=== PATIENT | male | born 1960 | race Caucasian/White ===

== ENCOUNTER → 2023-10-24 14:08 | Outpatient (BNVA) | payer MEDICARE, MEDICAID, SELFPAY | PROVIDERS: PCP Family Medicine; Visit Provider Family Medicine | DX: Z13.6 Encounter for screening for cardiovascular disorders (principal); R35.1 Nocturia; I10 Essential (primary) hypertension | CPT/HCPCS: 80053; 80061; 84153; 84443; 85025 ==

== ENCOUNTER 2023-10-27 14:44 | Outpatient (CLI) | payer MEDICARE, MEDICAID, SELFPAY ==
--- NOTE | 2023-10-27 14:45 | USCV_ITS ---
Aniket Linder Age: 63 Gender: M : 1960 Exam Date: 10/27/2023 15:20 Ordering Phys: Allyson Dempsey DO Technologist: TREVOR [place] [facility]: PAD Risk Factors: Previous Vascular Surgery: RIGHT LEFT BP: 174.0 / 114.00 BP: 192.0/ 109.00 0 0 Waveform Velocity (cm/s) Velocity (cm/s) Waveform Triphasic 69.5 Iliac Prox 76.3 Triphasic Triphasic 76.8 Iliac Mid 82.8 Triphasic Triphasic 78.1 Iliac Distal 90.4 Triphasic Triphasic 76.1 WIND TURBINE SHEET METAL WORKER 77.5 Triphasic Triphasic 68.9 SFA Prox 76.0 Triphasic Triphasic 74.2 SFA Mid 66.6 Triphasic Triphasic SFA Dist Triphasic 77.0 50.4 Triphasic 50.5 POP 44.4 Triphasic Triphasic 44.7 DIRECTOR DISTRIBUTION 36.7 Triphasic Biphasic 19.3 DPA 52.6 Triphasic RAYNE 0.8 FINDINGS RT NONCOMPRESSIBLE SO RAYNE COULD NOT BE OBTAINED Resting RAYNE 0.8 on the left side Near normal arterial Doppler waveforms and Doppler velocities bilaterally CONCLUSIONS 1. Noncompressible ankle vessels on the right side, suggesting extensive arterial sclerosis 2. Slightly diminished resting RAYNE on the left side mainstays of mild PAD. However the normal artery Doppler waveform could suggest some technical issues problems. Recommend exercise RAYNE and TBI to better evaluate the functional Significance Dr Mode Escalera MD [facility] (Electronically Signed) Final Date: 28 October 2023 11:24 S
== END 2023-10-27 14:45 | disposition home or self-care (01) ==
LOC: RAD 14:45
PROVIDERS: PCP Family Medicine; Visit Provider Family Medicine
DX: I73.9 Peripheral vascular disease, unspecified (principal)
CPT/HCPCS: 93925

== ENCOUNTER 2023-11-08 13:39 | Outpatient (CLI) | payer MEDICARE, MEDICAID, SELFPAY ==
--- NOTE | 2023-11-08 14:15 | USCV_ITS ---
Kailash Aniket Age: 63 Gender: M : 1960 Exam Date: 11/08/2023 15:06 Ordering Phys: Allyson Dempsey DO Technologist: Exam Location: [facility] [place] Indication: leg pain RIGHT LEFT Brachial 146.00 mmHg Brachial 158.00 mmHg Pressure (mmHg) Waveform Pressure (mmHg) Waveform 180.00 DIRECTOR OF COMMUNITY SERVICES 141.00 152.00 DPA 157.00 1.03 Ankle/Brachial Index 0.99 162.00 Pre-Exercise Toe Pressure 125.00 1.00 Pre-Exercise Toe/Brachial Index 0.79 FINDINGS Resting RAYNE 1.03 on the right side and 0.9 on the left side resting TBI of 1.0 on the right side and 0.79 on the left Post exercise RAYNE were in the normal range on both sides CONCLUSIONS 1. Normal resting ABIs and TBIs bilaterally 2. Normal postexercise ABIs bilaterally No significant arterial obstruction, based on the above findings Dr Mode Escalera MD [facility] (Electronically Signed) Final Date: 09 November 2023 09:07 S
== END 2023-11-08 13:40 | disposition home or self-care (01) ==
LOC: RAD 13:39
PROVIDERS: PCP Family Medicine; Visit Provider Family Medicine
DX: I73.9 Peripheral vascular disease, unspecified (principal)
CPT/HCPCS: 93922

== ENCOUNTER 2024-01-12 12:35 | Outpatient (CLI) | payer MEDICARE, MEDICAID, SELFPAY ==
--- NOTE | 2024-01-12 13:00 | CT_ITS ---
WS: [id number] LDCT LUNG CANCER SCREENING HISTORY: screening TECHNIQUE: Axial imaging performed from the apices to 1 cm below the costophrenic angles. Coronal and sagittal reformats are submitted with axial MIP series. All CT scans at [facility] use at least one of these dose optimization techniques: automated exposure control; mA and/or kV adjustment per patient size (includes targeted exams where dose is matched to clinical indication); or iterativ e reconstruction. DLP: 97.22 mGy.cm DIvol: Mean CTDIvol: 2.10 (mGy) COMPARISON: None available. Diagnostic quality: Satisfactory Lungs: Paraseptal emphysema. 6 mm nodule in the periphery LEFT lower lobe is partially calcified. The re is an additional nodule in the superior segment RIGHT lower lobe measuring 3 mm. There are no conc erning masses or nodules. No pneumonia. Heart: Normal size heart with no pericardial effusion.. Other findings: Mild atherosclerosis aorta. Normal sized pulmonary artery. Indeterminate mediastinal and hilar lymph nodes. Lymph nodes measure up to 11 mm in short axis diameter. Some of the lymph node s contain calcification. Cholelithiasis. No evidence for acute cholecystitis. Well-circumscribed soft tissue mass in the posterior inferior RIGHT chest wall measures 1.2 x 2.1 cm. IMPRESSION: CT/CT lung screening [id number] LUNG-RADS: 1S-Negative with Significant Findings FOLLOW UP: 12 Month: Continue annual screening with LDCT OTHER FINDINGS (S MODIFIER): Cholelithiasis without acute cholecystitis. Well-circumscribed benign-appearing subcutaneous soft tissue nodule inferior po sterior RIGHT chest wall. Probably a sebaceous cyst. If this is painful or enla rges can be evaluated by ultrasound.
== END 2024-01-12 12:36 | disposition home or self-care (01) ==
LOC: RAD 12:36
PROVIDERS: PCP Family Medicine; Visit Provider Family Medicine
DX: Z12.2 Encounter for screening for malignant neoplasm of respiratory organs (principal); R91.8 Other nonspecific abnormal finding of lung field; R22.2 Localized swelling, mass and lump, trunk; F17.219 Nicotine dependence, cigarettes, with unspecified nicotine-induced disorders
CPT/HCPCS: 71271

== ENCOUNTER → 2025-08-22 11:21 | Outpatient (BNVA) | payer MEDICARE, MEDICAID, SELFPAY | PROVIDERS: PCP Family Medicine; Visit Provider Family Medicine | DX: Z12.5 Encounter for screening for malignant neoplasm of prostate (principal); I10 Essential (primary) hypertension; G62.9 Polyneuropathy, unspecified; I73.9 Peripheral vascular disease, unspecified; E78.5 Hyperlipidemia, unspecified | CPT/HCPCS: 85025 ==

== ENCOUNTER 2025-09-04 15:32 | Outpatient (CLI) | payer OTHER, MEDICAID, SELFPAY ==
--- NOTE | 2025-09-04 16:00 | USCV_ITS ---
Aniket Linder Age: 65 Gender: M : 1960 Exam Date: 09/04/2025 15:52 Ordering Phys: Allyson Dempsey DO Technologist: MADAI [place] [facility] [place]: leg pain-bilateral HISTORY: Lower extremity pain-bilateral PROCEDURES: Venous duplex imaging was performed in bilateral lower extremities. The following venous structures were evaluated: common femoral vein, profunda vein, proximal portion of the greater saphenous vein, superficial femoral vein, and the popliteal vein. In addition, the posterior tibial and peroneal trunk were evaluated. FINDINGS: Normal 2-D Doppler and augmentation and compressibility throughout the lower extremity venous structures. Additional imaging through the proximal calf veins also reveals no thrombus. Limited evaluation of the greater saphenous vein is patent with no thrombus. CONCLUSIONS No DVT bilateral lower extremities. Dr. Katharina Gunderson DO (Electronically Signed) Final Date: 05 September 2025 07:43 S
== END 2025-09-04 15:33 | disposition home or self-care (01) ==
LOC: RAD 15:35
PROVIDERS: PCP Family Medicine; Visit Provider Family Medicine
DX: M79.89 Other specified soft tissue disorders (principal); Z13.6 Encounter for screening for cardiovascular disorders; I10 Essential (primary) hypertension
CPT/HCPCS: 85025; 93970

== ENCOUNTER 2025-09-19 10:04 | Outpatient (CLI) | payer MEDICARE, MEDICAID, SELFPAY | END 2025-09-19 10:05 | disposition home or self-care (01) | PROVIDERS: PCP Family Medicine; Visit Provider Family Medicine | DX: Z12.5 Encounter for screening for malignant neoplasm of prostate (principal); R73.9 Hyperglycemia, unspecified; I10 Essential (primary) hypertension | CPT/HCPCS: 80053; 80061; G0103 ==

== ENCOUNTER 2025-09-30 15:56 | Outpatient (CLI) | payer MEDICARE, MEDICAID, SELFPAY ==
--- NOTE | 2025-09-30 16:30 | USR_ITS ---
PROCEDURE INFORMATION: Exam: US Duplex Right Lower Extremity Arteries Or Arterial Bypass Grafts Exam date and time: 09/30/2025 4:27 PM Age: 65 years old Clinical indication: Pain; Leg, lower; Right; Additional info: Pad, with pepper TECHNIQUE: Imaging protocol: Right Real-time duplex scan of the arteries or arterial bypass grafts of the right lower extremity with 2-D moya scale, color Doppler flow and spectral waveform analysis. Images documented and saved. COMPARISON: No relevant prior studies available. FINDINGS: Right common femoral artery: No occlusion or significant stenosis. Normal waveform. No pseudoaneurysm in the inguinal region. Right superficial femoral artery: No occlusion or significant stenosis. Normal waveform. Right popliteal artery: No occlusion or significant stenosis. Normal waveform. Right calf/foot arteries: No occlusion or significant stenosis in the visualized arteries. Normal waveforms. Dorsalis pedis artery is patent. Right ankle-brachial index is 1.1. Soft tissues: No hematoma or [place]. US/[place] [id number] IMPRESSION: No stenosis or occlusion. Normal ankle-brachial index.
== END 2025-09-30 15:57 | disposition home or self-care (01) ==
PROVIDERS: PCP Family Medicine; Visit Provider Family Medicine
DX: I73.9 Peripheral vascular disease, unspecified (principal); R68.89 Other general symptoms and signs
CPT/HCPCS: 93926

== ENCOUNTER 2025-10-18 13:25 | Inpatient (IN) | payer MEDICARE, MEDICAID, SELFPAY ==
[2025-10-18] VITALS (12 sets, daily range): BP systolic 120–164; BP diastolic 71–114; PULSE 92–129; RESP 12–47; TEMP 36.4–36.8; O2SAT 90–98; BMI 33.7
--- OUTSIDE RECORDS SUMMARY | 2025-10-18 13:28 | XMS_ITS | Clinical Summary ---
Author Organization [employer] Address [address] 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
--- OUTSIDE RECORDS SUMMARY | 2025-10-18 13:28 | XMS_ITS | Encounter Summary ---
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
--- OUTSIDE RECORDS SUMMARY | 2025-10-18 13:28 | XMS_ITS | Encounter Summary ---
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
--- OUTSIDE RECORDS SUMMARY | 2025-10-18 13:28 | XMS_ITS | Encounter Summary ---
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
--- OUTSIDE RECORDS SUMMARY | 2025-10-18 13:28 | XMS_ITS | Encounter Summary ---
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
--- OUTSIDE RECORDS SUMMARY | 2025-10-18 13:28 | XMS_ITS | Encounter Summary ---
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
--- OUTSIDE RECORDS SUMMARY | 2025-10-18 13:28 | XMS_ITS | Encounter Summary ---
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
--- OUTSIDE RECORDS SUMMARY | 2025-10-18 13:28 | XMS_ITS | Encounter Summary ---
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
--- NOTE | 2025-10-18 13:37 | ECG_ITS ---
[facility] Test Date: 2025-10-18 Pat Name: Aniket Linder Department: Room: Gender: Male Nurse Transitional: : 1960 Requested By: Juvenal Nair Order Number: [id number] Juan M MD: Wang Shields M.D. Measurements Intervals [place] Rate: 120 P: 8 OK: 162 QRS: -79 QRSD: 146 T: 63 QT: 378 QTc: 535 Interpretive Statements ATRIAL FLUTTER WITH VARIABLE BLOCK RIGHT BUNDLE BRANCH BLOCK [120+ ms QRS DURATION, UPRIGHT V1, 40+ ms S IN I/aVL/V4/V5/V6] LEFT ANTERIOR FASCICULAR BLOCK [QRS AXIS <= -45, QR IN I, RS IN II] POOR R WAVE PROGRESSION, POSSIBLE OLD ANTERIOR INFARCTION No previous ECG available for comparison Electronically Signed On 10-19-2025 15:54:41 NURSE TRANSITIONAL by Wang Shields M.D. [email or web address]
--- NOTE | 2025-10-18 13:38 | XRR_ITS ---
PROCEDURE INFORMATION: Exam: XR Chest Exam date and time: 10/18/2025 1:41 PM Age: 65 years old Clinical indication: Shortness of breath; Additional info: SOB TECHNIQUE: Imaging protocol: Radiologic exam of the chest. Views: 1 view. COMPARISON: CT lung screening [id number] 01/12/2024 12:44 PM FINDINGS: Lungs: Diffuse bilateral somewhat nodular interstitial infiltrates are noted.Gian B lines are noted in both lung bases. Pleural spaces: Unremarkable. No pleural effusion. No pneumothorax. Heart/Mediastinum: Mild cardiomegaly is noted. Bones/joints: Unremarkable. XR/XR chest 1V portable [id number] IMPRESSION: Congestive heart failure
--- NOTE | 2025-10-18 13:46 | ED_ITS ---
HPI - SOB/Dyspnea 2 General: Chief Complaint: Shortness of Breath/Dyspnea Stated Complaint: SOB Time Seen by Provider: 10/18/25 13:33 Source: patient Mode of arrival: ambulatory Limitations: no limitations History of Present Illness: HPI Narrative: 65-year-old male states been having shor tness of breath since last night. Longtime smoker denies any history of COPD or CHF. He has had a cough as well. Patient here is tachypneic and in distress here. He is able to speak in 2-4 word sentences. He denies any chest pain denies any fevers Related Data Previous Rx's ?Medication ?Instructions ?Recorded atorvastatin 20 mg tablet 20 mg PO DAILY #90 tabs 100 01/15 cilostazol 100 mg tablet 100 mg PO BID #180 tabs 100 01/15 losartan 50 mg tablet 50 mg PO DAILY #90 tabs 100 01/15 Allergies Allergy/AdvReac Type Severity Reaction Status Date / Time No Known Allergies Allergy Unverified 09/19/25 09:17 Review of Systems 2 Resp: Reports: dyspnea PFSH ED 2 PFSH: Medical History No pertinent past medical history Leg fracture, right Surgical History H/O knee surgery Left H/O pelvic surgery Family History Father Heart disease Mother Dementia Social History Smoking and tobacco/nicotine status: current every day tobacco/nicotine user Quit status (tobacco/nicotine): considering quitting Alcohol intake: former Substance/Drug Use: never Physical Exam 2 Const: COMMON NORMALS: patient oriented x3 GENERAL APPEARANCE: in distress and ill appearing HENMT: COMMON NORMALS: normocephalic and atraumatic HEAD & SCALP: n ormocephalic and atraumatic Neck/C-Spine: COMMON NORMALS: full ROM and supple Chest: COMMONS NORMALS: normal inspection of the chest Resp: EFFORT & INSPECTION: Yes tachypneic and Yes respiratory distress A USCULTATION: diminished lung sounds Cardio: COMMON NORMALS: regular rhythm and No murmurs present (Cardio) R ATE: tachycardic RHYTHM: regular rhythm GI: COMMON NORMALS: Normal to inspection, nondistended, normoactive bowel sounds present, Soft to palpation, non-tender and no masses PALPATION: Yes Soft to palpation Extremity: COMMON NORMALS: normal to inspection and full ROM Neuro: COMMON NORMALS: patient oriented x3, moves all extremities and no focal motor deficits Psych: COMMON NORMALS: mental status grossly normal, Normal thought process present and cooperative THOUGHT PROCESS: Normal thought process present Skin: COMMON NORMALS: no rashes or lesions noted and no wounds GENERAL SKIN EXAM: no rashes or lesions noted Course 2 Vital Signs: Vital signs: Vital Signs Temperature 97.5 F L 10/18/25 13:29 Pulse Rate 105 H 10/18/25 14:18 Respiratory Rate 16 10/18/25 14:16 Blood Pressure 120/71 10/18/25 14:16 Pulse Oximetry 97 10/18/25 14:16 Oxygen Delivery Mn thod BiPAP 10/18/25 14:16 Fraction of Inspir ed Oxygen 36 10/18/25 14:13 MDM - SOB/Dyspnea Medical Decision Making 65-year-old male presents here with shortness of breath began overnight. Differential includes pulm emboli, pneumonia, CHF, pneumothorax. Chest x-ray here was interpreted by me shows extensive pulmonary edema is no signs of pneumothorax no signs of pneumonia. EKG here showed sinus tach heart rate [address] elevation QRS 146 QTc 449. Patient was quite hypertensive. Likely had a flash pulmonary edema. Given labetalol blood pressure here has improved put him on BiPAP as well as he was on respiratory distress and his breathing here has improved. Initial troponin here is elevated he has no active chest pain no ST elevation on his EKG troponin elevation could be from his congestive heart failure also could be an NSTEMI we will give him a dose of Lovenox. I spoke to hospitalist Dr. Escobedo and will admit to the cardiac stepdown. I also consulted card fixer Dr. Payan I did go over all these findings with patient and family and they agree with admission critical care time 45 minutes The high probability of a clinically significant, sudden or life threatening deterioration of the patient's cv system(s) required my full and direct attention, intervention and personal management. The critical care time is as shown. This time is in addition to time spent performing any reported procedures but includes the following: [x] Data and vital sign review and interpretation [x] Patient assessment, examination and intervention [x] Documentation [x] Medication orders and management Medical Records I reviewed the patient's medical records. Lab Data I reviewed the patient's lab results. 10/18/25 13:44 10/18/25 13:44 Labs/Radiology: Radiology Impressions Chest X-Ray 10/18/25 13:38 IMPRESSION: Congestive heart failure Laboratory Results WBC 14.79 10^3/uL (3.29-11.43) H 10/18/25 13:44 RBC 5.22 10^6/uL (3.85-5.65) 10/18/25 13:44 Hgb 14.90 g/dL (11.27-16.99) 10/18/25 13:44 Hct 45.2 % (37-53) 10/18/25 13:44 MCV 86.6 fl (82-101) 10/18/25 13:44 MCH 28.5 pg (27-33) 10/18/25 13:44 MCHC 33.0 g/dL (30-55) 10/18/25 13:44 RDW 14.0 % (12.1-15.1) 10/18/25 13:44 Plt Count 313 10^3/cmm (157-399) 10/18/25 13:44 MPV 10.8 fL (7.4-10.4) H 10/18/25 13:44 Neut % (Auto) 78.5 % 10/18/25 13:44 Lymph % (Auto) 14.8 % 10/18/25 13:44 Morrill % (Auto) 5.1 % 10/18/25 13:44 Eos % (Auto) 0.5 % 10/18/25 13:44 Baso % (Auto) 0.5 % 10/18/25 13:44 Neut # (Auto) 11.61 10^3/uL (1.8-7.7) H 10/18/25 13:44 Lymph # (Auto) 2.2 10^3/uL (0.8-4.8) 10/18/25 13:44 Morrill # (Auto) 0.8 10^3/uL (0.2-0.9) 10/18/25 13:44 Eos # (Auto) 0.1 10^3/uL (0.0-0.8) 10/18/25 13:44 Baso # (Auto) 0.1 10^3/uL (0.0-0.1) 10/18/25 13:44 Nucleated RBC % (auto) 0 % 10/18/25 13:44 Nucleated RBCs # 0.0 /100WBC 10/18/25 13:44 Specimen Type Arterial 10/18/25 14:39 Sample Site Brachial, right 10/18/25 14:39 ABG pH 7.50 (7.35-7.45) H 10/18/25 14:39 ABG pCO2 25.1 mmHg (35-45) L 10/18/25 14:39 ABG pO2 82.4 mmHg (80.0-100.0) 10/18/25 14:39 ABG PO2/FiO2 Ratio 228 10/18/25 14:39 ABG HCO3 19.4 mmol/L (22-26) L 10/18/25 14:39 ABG Base Excess -2.0 mmol/L (-2.0-2.0) 10/18/25 14:39 Jonatan Test Pos 10/18/25 14:39 Hematocrit 46.0 % (42-52) 10/18/25 14:39 Hgb O2 Saturation 96.6 % (95-100) 10/18/25 14:39 Carboxyhemoglobin 1.3 %THgb (0.4-20.1) 10/18/25 14:39 Methemoglobin 0.1 % (0.4-1.5) L 10/18/25 14:39 Total Hemoglobin 15.0 g/dL (14-18) 10/18/25 14:39 O2 Delivery Device Bipap 10/18/25 14:39 FiO2 36.0 % 10/18/25 14:39 [employer] Gold Attendant ID glc 10/18/25 14:39 Sodium 135 mmol/L (136-145) L 10/18/25 13:44 Potassium 4.4 mmol/L (3.5-5.1) 10/18/25 13:44 Chloride 101 mmol/L (98-107) 10/18/25 13:44 Carbon Dioxide 21 mmol/L (22-29) L 10/18/25 13:44 Anion Gap 17.4 (5-19) 10/18/25 13:44 BUN 13 mg/dL (8-23) 10/18/25 13:44 Creatinine 0.9 mg/dL (0.7-1.2) 10/18/25 13:44 GFR Calculation 84.7 mL/min (90-130) L 10/18/25 13:44 Glucose 145 mg/dL (65-115) H 10/18/25 13:44 Calculated Osmolality 283 mOsm/kg (285-295) L 10/18/25 13:44 Calcium 9.2 mg/dL (8.5-10.5) 10/18/25 13:44 Total Bilirubin 0.9 mg/dL (0.15-1.2) 10/18/25 13:44 AST 19 U/L (0-40) 10/18/25 13:44 ALT 16 U/L (0-41) 10/18/25 13:44 Alkaline Phosphatase 139 U/L (40-130) H 10/18/25 13:44 Troponin T Baseline 116 ng/L (0-15) H* 10/18/25 13:44 NT-Pro-B Natriuret Pep 3063 pg/mL (0-125) H 10/18/25 13:44 Total Protein 7.2 g/dL (6.6-8.7) 10/18/25 13:44 Albumin 4.1 g/dL (3.5-5.2) 10/18/25 13:44 Globulin 3.1 g/dL (1.3-4.6) 10/18/25 13:44 Influenza A (PCR) Negative (Negative) 10/18/25 13:44 Influenza Type B (PCR) Negative (Negative) 10/18/25 13:44 RSV (PCR) Negative (Negative) 10/18/25 13:44 SARS-CoV-2 (PCR) Negative (Negative) 10/18/25 13:44 All radiology interpretation(s) finalized by discharge EKG Data EKG 1: I personally reviewed and interpreted this EKG as follows: EKG Interpretation Date: 10/18/25 EKG interpretation time: 13:36 Interpretation: sinus tach hr [address] elevation qrs 146 qtc 449 Critical Care Time 2 Critical Care Time: Critical Care Time: Yes Total Critical Care Time: 45 Attestation: The high probability of a clinically significant, sudden or life threatening deterioration of the patient's cv system(s) required my full and direct attention, intervention and personal management. The critical care time is as shown. This time is in addition to time spent performing any reported procedures but includes the following: [x] Data and vital sign review and interpretation [x] Patient assessment, examination and intervention [x] Documentation [x] Medication orders and management Discharge Plan Discharge Patient Disposition: Admitted As Inpatient Clinical Impression: Pulmonary edema, Non-ST elevation [place] (NSTEMI), Acute respiratory failure with hypoxia Condition: Stable Coding Level of Care Code ED Pattern Gater for Shannan Santos
[2025-10-18] MEDS: methylPREDNISolone sod succ 125 mg/2 mL INJ IV (13:47)
[2025-10-18 13:50] LABS: Hematocrit 45.2 % (37-53); Hemoglobin 14.90 g/dL (11.27-16.99); Mean Corpuscular HGB Conc 33.0 g/dL (30-55); Mean Corpuscular Hemoglobin 28.5 pg (27-33); Mean Corpuscular Volume 86.6 fl (82-101); Nucleated Red Blood Cells % 0 %; Platelet Count 313 10^3/cmm (157-399); Red Blood Count 5.22 10^6/uL (3.85-5.65); White Blood Count 14.79 10^3/uL (3.29-11.43)
[2025-10-18] MEDS: FUROsemide 10 mg/mL SDV 4mL 40 MG IVP ×2 (14:03→20:46)
[2025-10-18] MEDS: labetalol 5 mg/mL SDV 20mL 10 MG IVP (14:03)
[2025-10-18 14:21] LABS: Alanine Aminotransferase 16 U/L (0-41); Albumin Level 4.1 g/dL (3.5-5.2); Alkaline Phosphatase 139 U/L (40-130); Anion Gap 17.4 (5-19); Aspartate Amino Transferase 19 U/L (0-40); Blood Urea Nitrogen 13 mg/dL (8-23); Calcium 9.2 mg/dL (8.5-10.5); Carbon Dioxide 21 mmol/L (22-29); Chloride 101 mmol/L (98-107); Creatinine Clr Calc Pharmacy 100.0435; Globulin 3.1 g/dL (1.3-4.6); Glucose 145 mg/dL (65-115); NT Pro B Type Natriuretic Pept 3063 pg/mL (0-125); Osmolality Calculated 283 mOsm/kg (285-295); Potassium 4.4 mmol/L (3.5-5.1); Sodium 135 mmol/L (136-145); Total Protein 7.2 g/dL (6.6-8.7)
[2025-10-18 14:22] LABS: Troponin(5th) Baseline 116 ng/L (0-15)
[2025-10-18 14:29] LABS: Respiratory Syncytial Virus Ce NEGATIVE (Negative); SARS-CoV-2 PCR NEGATIVE (Negative)
[2025-10-18 14:51] LABS: ABG PCO2 25.1 mmHg (35-45); ABG PH Result 7.50 (7.35-7.45); Arterial Blood Gas Hematocrit 46.0 % (42-52); Blood Gas Allen Test Pos; Blood Gas Operator Identificat glc; Blood Gas Sample Site Brachial, right; Blood Gas Sample Type Arterial; Carboxyhemoglobin 1.3 %THgb (0.4-20.1); HCO3 ABG 19.4 mmol/L (22-26); Methemoglobin 0.1 % (0.4-1.5); PO2 ABG 82.4 mmHg (80.0-100.0); PO2 FiO2 Ratio Arterial Blood 228
--- NOTE | 2025-10-18 15:37 | ECG_ITS ---
[facility] Date: 2025-10-18 Pat Name: Aniket Linder Department: Room: 108 Gender: Male Employment Counselor: : 1960 Requested By: Juvenal Nair Order Number: [id number] Juan M MD: Wang Shields M.D. Measurements Intervals [place] Rate: 99 P: -8 ID: [id number] QRS: -85 QRSD: 147 T: 120 QT: 290 QTc: 372 Interpretive Statements SINUS RHYTHM WITH FIRST DEGREE AV BLOCK WITH OCCASIONAL SUPRAVENTRICULAR PREMATURE COMPLEXES LEFT AXIS DEVIATION [QRS AXIS < -30] RIGHT BUNDLE BRANCH BLOCK [120+ ms QRS DURATION, UPRIGHT V1, 40+ ms S IN I/aVL/V4/V5/V6] Compared to ECG 10/18/2025 13:36:31 NO SIGNIFICANT CHANGE Electronically Signed On 10-19-2025 17:37:33 DOG RAISER by Wang Shields M.D. [id number]
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
--- NOTE | 2025-10-18 16:00 | PC.NURSE ---
Admit Note Patient admitted to 108 from ER via stretcher. Covering service notified Dr Neri. Patient presents with SOB and generalizes swelling on legs. Orders reviewed & will continue to monitor. Pt still tachypneic upon arrival, BIPAP placed. Lower extremity cool to touch, with mild mottling. Pt on 4 L NC. Applied BIPAP back on for work of breathing, notified RT to come to room. Patient and/or tax compliance representative - oriented to environment, equipment, and informed of the following as found in the admission booklet: patient rights & responsibilities, visitor policy, hand and respiratory hygiene practice. Other education includes: BIPAP use, oxygen monitoring and use and placement of romero catheter for output measurement while on diureses. Patient and/or tax compliance representative verbalizes understanding.
--- NOTE | 2025-10-18 16:03 | USR_ITS ---
PROCEDURE INFORMATION: Exam: US Duplex Bilateral Lower Extremity Arteries Exam date and time: 10/18/2025 5:13 PM Age: 65 years old Clinical indication: Other: Decreased dp/pt pulses TECHNIQUE: Imaging protocol: Real-time ultrasound scan of the arteries of the bilateral lower extremities with 2-D moya scale, color Doppler flow and spectral waveform analysis. Images documented and saved. COMPARISON: [place] [id number] 09/30/2025 4:27 PM FINDINGS: Right common femoral artery: No occlusion or significant stenosis. Normal waveform. Right superficial femoral artery: No occlusion or significant stenosis. Normal waveform. Right popliteal artery: No occlusion or significant stenosis. Normal waveform. Right calf/foot arteries: No occlusion or significant stenosis in the visualized arteries. Normal waveforms. Dorsalis pedis artery is patent. Left common femoral artery: No occlusion or significant stenosis. Normal waveform. Left superficial femoral artery: No occlusion or significant stenosis. Normal waveform. Left popliteal artery: No occlusion or significant stenosis. Normal waveform. Left calf/foot arteries: No occlusion or significant stenosis in the visualized arteries. Normal waveforms. Dorsalis pedis artery [place]. US/[place] [id number] IMPRESSION: 1. No stenosis or occlusion. 2. Per technologist unable to calculate RAYNE due to noncompressible ankle arteries.
[2025-10-18 16:34] LABS: Estmated Average Glucose 148; Hemoglobin A1C 6.8 % (4.0-6.0)
[2025-10-18 16:43] LABS: Procalcitonin 0.07 ng/mL (0-0.5); Thyroid Stimulating Hormone 2.01 uIU/mL (0.27-4.20)
[2025-10-18 16:54] LABS: Cholesterol 118 mg/dL (0-200); HDL Cholesterol 36 mg/dL (60-100); Triglycerides 82 mg/dL (0-150)
[2025-10-18 17:02] LABS: Glucose Urine UA Negative (Normal); Nitrate Urine Negative (Negative); Specific Gravity, Urine 1.008 (1.005-1.030)
[2025-10-18] MEDS: cefTRIAXone 1,000 mg SDV 1000 MG IVP (17:03)
[2025-10-18] MEDS: pantoprazole 40 mg SDV IVP (17:03)
[2025-10-18 17:07] LABS: Add Urine Microscopic? YES
[2025-10-18 17:37] LABS: Lactic Sepsis W/Reflex 1.7 mmol/L (0.5-2.2)
[2025-10-18 17:48] LABS: INR 1.02 (0.8-1.2); Prothrombin Time 14.10 SECONDS (12.1-14.9)
[2025-10-18 17:49] LABS: Partial Thromboplastin Time 30.8 SECONDS (23.9-36.7)
--- NOTE | 2025-10-18 17:55 | P.CONIM_ITS ---
Providers/Reason For Consult 2 Consulting Physician/Specialty*: Wang Shields MD Reason for Consult*: Congestive heart failure Requesting Physician: William Neri MD Attending Physician: William Neri MD Primary Care Provider: Allyson Dempsey DO History of Present Illness History of Present Illness Aniket Linder is a 65 year old male with a history of COPD, hypertension and chronic lower extremity lymphedema who presents with shortness of breath and hypertensive emergency. Blood pressure was in the 180s over 120 in the emergency room. He was hypoxic and started on BiPAP with some improvement. Patient was given Lasix 40 mg IV x 1. Chest x-ray showed bilateral infiltrates and pulmonary edema. Patient was found to have lower extremity edema on exam. Patient and the patient's state his swelling is no worse compared to his baseline. 2 EKGs have been performed which I have personally interpreted: Sinus tachycardia heart rate 120, left anterior fascicular block, right bundle branch block Troponins: 116??> 120 NT proBNP 3063 No prior echocardiograms in our records 11/08/2023 arterial duplex at rest and postexercise: 1. Normal resting ABIs and TBIs bilaterally 2. Normal postexercise ABIs bilaterally Medications/Allergies Home Medications ?Medication ?Instructions ?Recorded ?Confirmed ?Last Taken ?Type atorvastatin 20 mg tablet 20 mg PO DAILY #90 tabs 10/0 01/1510/18/25 10/17/25 19:00 Rx cilostazol 100 mg tablet 100 mg PO BID #180 tabs 10/0 01/1510/18/25 10/17/25 19:00 Rx losartan 50 mg tablet 50 mg PO DAILY #90 tabs 10/0 01/1510/18/25 10/17/25 19:00 Rx Allergies Allergy/AdvReac Type Severity Reaction Status Date / Time No Known Allergies Allergy Unverified 09/19/25 09:17 Current Medications Generic Name Dose Route Start Last Admin Trade Name Freq PRN Reason Stop Dose Admin Albuterol/Ipratropium 3 ml 10/18/25 16:03 10/18/25 16:46 Ipratropium-Albuterol 3 Ml Neb INHALATION 3 ml Q4H.RESPIRATORY JAIDEN Administration Ceftriaxone Sodium 1,000 mg 10/18/25 16:03 10/18/25 17:03 Ceftriaxone 1,000 Mg Sdv IVP 1,000 mg Q24H JAIDEN Administration Protocol Azithromycin 500 mg/ Sodium 250 mls @ 250 mls/hr 10/18/25 16:03 10/18/25 17:03 Chloride IV 250 mls/hr Q24H JAIDEN Administration Protocol Pantoprazole Sodium 40 mg 10/18/25 16:03 10/18/25 17:03 Pantoprazole 40 Mg Sdv IVP 40 mg Q24H JAIDEN Administration PFSH Acute 2 PFSH: Medical History (Updated 10/18/25 @ 18:02 by Wang Shields MD) No pertinent past medical history Leg fracture, right Surgical History H/O knee surgery Left H/O pelvic surgery Family History Father Heart disease Mother Dementia Social History Smoking and tobacco/nicotine status: current every day tobacco/nicotine user Quit status (tobacco/nicotine): considering quitting Alcohol intake: former Substance/Drug Use: never Vitals/I&O/Wt Last Vital Signs Temp 97.8 F 10/18/25 16:03 Pulse 104 H 10/18/25 16:50 Resp 30 H 10/18/25 16:50 BP 130/89 10/18/25 16:03 Pulse Ox 94 10/18/25 16:50 O2 Del Method BiPAP 10/18/25 16:50 FiO2 36 10/18/25 16:50 10/18/25 10/18/25 10/18/25 06:59 14:59 22:59 Output Total 1050 / 1050 Balance -1050 / -1050 Weight last 48 hrs Weight 235 lb Physical Exam 2 Narrative: General: Mild increased work of breathing. Heart: Normal S1 and S2 with a regular rate and rhythm Lungs: Posterior rales bilaterally Extremities: 1+ bilateral lower extremity edema Neuro: Alert and oriented x 3 Data 10/18/25 13:44 10/18/25 13:44 Micro: Microbiology 10/18/25 17:02 Blood Culture - Preliminary Blood SPECIMEN COLLECTED 10/18/25 17:00 Blood Culture - Preliminary Blood SPECIMEN COLLECTED A&P Assessment and plan 1. Acute respiratory failure with hypoxia: 2. Non-ST elevation [place] (NSTEMI): 3. Pulmonary edema: 4. Dyslipidemia: 5. Acute CHF: Plan: - Patient presents with accelerated hypertension, acute hypoxic respiratory failure and congestive heart failure. Chest x-ray consistent with pulmonary edema and possible bilateral pneumonia. Troponins mildly elevated possibly due to just demand ischemia however acute coronary syndrome cannot be excluded. EKG with no evidence of ST or T wave ischemic changes. Patient also denies having any chest pain. His main symptom has been shortness of breath. - Obtain echocardiogram - Lasix 40 mg IV twice daily ? Lovenox 1 mg/kg SQ twice daily ? Aspirin 81 mg daily - Accelerated hypertension has normalized with improvement in the patient's respiratory distress - Treatment for possible known pneumonia per hospitalist team - Will need ischemic workup once respiratory status more stable. Stress test versus heart catheterization will depend on the echocardiogram results and his clinical progress. PDMP PDMP Reviewed: Not Reviewed Coding Level of Care Code 34721 Diagnoses Acute respiratory failure with hypoxia J96.01 Non-ST elevation [place] (NSTEMI) I21.4 Pulmonary edema J81.1 Dyslipidemia E78.5 Acute CHF I50.9
[2025-10-18 20:45] LABS: Troponin 5 6HR Delta -1.3 ng/L (0-12)
[2025-10-18 21:05] LABS: Troponin 5 6HR 114.7 ng/L (0-15)
--- NOTE | 2025-10-18 22:34 | ECG_ITS ---
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 Measurements Intervals [place] Rate: 102 P: -8 WI: 163 QRS: -77 QRSD: 150 T: 120 QT: 351 QTc: 459 Interpretive Statements SINUS TACHYCARDIA WITH OCCASIONAL SUPRAVENTRICULAR PREMATURE COMPLEXES RIGHT BUNDLE BRANCH BLOCK [120+ ms QRS DURATION, UPRIGHT V1, 40+ ms S IN I/aVL/V4/V5/V6] LEFT ANTERIOR FASCICULAR BLOCK [QRS AXIS <= -45, QR IN I, RS IN II] Compared to ECG 10/18/2025 14:40:00 NO SIGNIFICANT CHANGE TRACING ARTIFACT DECREASED Electronically Signed On 10-19-2025 17:27:22 ALIGNING INSPECTOR by Wang Shields M.D. [id number]
[2025-10-19] VITALS (16 sets, daily range): BP systolic 108–151; BP diastolic 56–112; PULSE 90–133; RESP 13–28; TEMP 36.4–36.8; O2SAT 93–98
[2025-10-19 03:30] LABS: Hematocrit 43.8 % (37-53); Hemoglobin 13.90 g/dL (11.27-16.99); Mean Corpuscular HGB Conc 31.7 g/dL (30-55); Mean Corpuscular Hemoglobin 28.3 pg (27-33); Mean Corpuscular Volume 89.2 fl (82-101); Nucleated Red Blood Cells % 0 %; Platelet Count 231 10^3/cmm (157-399); Red Blood Count 4.91 10^6/uL (3.85-5.65); White Blood Count 13.54 10^3/uL (3.29-11.43)
[2025-10-19 04:04] LABS: Alanine Aminotransferase 13 U/L (0-41); Albumin Level 3.7 g/dL (3.5-5.2); Alkaline Phosphatase 122 U/L (40-130); Blood Urea Nitrogen 16 mg/dL (8-23); Calcium 8.7 mg/dL (8.5-10.5); Carbon Dioxide 20 mmol/L (22-29); Chloride 101 mmol/L (98-107); Globulin 2.6 g/dL (1.3-4.6); Glucose 277 mg/dL (65-115); Magnesium 2.2 mg/dL (1.7-2.3); NT Pro B Type Natriuretic Pept 6066 pg/mL (0-125); Osmolality Calculated 289 mOsm/kg (285-295); Sodium 134 mmol/L (136-145); Total Protein 6.3 g/dL (6.6-8.7)
[2025-10-19 04:05] LABS: Anion Gap 17.4 (5-19); Aspartate Amino Transferase 17 U/L (0-40); Potassium 4.4 mmol/L (3.5-5.1)
[2025-10-19] MEDS: methylPREDNISolone sod succ 40 mg/mL INJ IVP ×2 (04:11→12:33)
[2025-10-19] MEDS: ATORVASTATIN 20 MG TABLET PO (04:12)
[2025-10-19] MEDS: FUROsemide 10 mg/mL SDV 4mL 40 MG IVP ×2 (08:00→21:22)
--- NOTE | 2025-10-19 08:29 | ECG_ITS ---
[employer] [facility] [facility] Test Date: 2025-10-19 Pat Name: Aniket Linder Department: Room: 108 Gender: Male Stripper Preliminary: : 1960 Requested By: William Neri Order Number: [id number] Juan M MD: Wang Shields M.D. Measurements Intervals [place] Rate: 131 P: 0 PA: 0 QRS: -78 QRSD: 149 T: 81 QT: 369 QTc: 545 Interpretive Statements SINUS TACHYCARDIA WTIH FREQUENT PREMATURE ATRIAL BEATS RIGHT BUNDLE BRANCH BLOCK [120+ ms QRS DURATION, UPRIGHT V1, 40+ ms S IN I/aVL/V4/V5/V6] LEFT ANTERIOR FASCICULAR BLOCK [QRS AXIS <= -45, QR IN I, RS IN II] POSSIBLE SEPTAL MYOCARDIAL INFARCTION , OF INDETERMINATE AGE [30 ms Q WAVE IN V1/V2] Compared to ECG 10/18/2025 22:34:36 HEART RATE AND FREQUENCY OF PREMATURE ATRIAL ECTOPIC BEATS HAS INCREASED Electronically Signed On 10-19-2025 14:28:37 MULTIMEDIA EDUCATIONAL SPECIALIST by Wang Shields M.D. [email or web address] [id number]
[2025-10-19 10:02] LABS: Troponin(5th) Baseline 92 ng/L (0-15)
--- NOTE | 2025-10-19 10:27 | ECG_ITS ---
[facility] Test Date: 2025-10-19 Pat Name: Aniket Linder Department: Room: 108 Gender: Male Or Assistant: : 1960 Requested By: William Neri Order Number: [id number] Juan M MD: Wang Shields M.D. Measurements Intervals [place] Rate: 121 P: 0 [place]: 0 QRS: -82 QRSD: 154 T: 56 QT: 393 QTc: 558 Interpretive Statements SINUS TACHYCARDIA WITH FREQUENT SUPRAVENTRICULAR ECTOPIC BEATS LEFT AXIS DEVIATION [QRS AXIS < -30] RIGHT BUNDLE BRANCH BLOCK [120+ ms QRS DURATION, UPRIGHT V1, 40+ ms S IN I/aVL/V4/V5/V6] LEFT ANTERIOR FASCICULAR BLOCK Compared to ECG 10/19/2025 08:29:51 NO SIGNIFICANT CHANGE Electronically Signed On 10-19-2025 17:17:00 MEAT TRIMMER by Wang Shields M.D. [id number]
--- NOTE | 2025-10-19 13:11 | P.PN_ITS ---
Subjective 2 Subjective: Overnight, no chest pain, does have palpitations, currently in A-fib with RVR heart rates up into the 130s, no lightheadedness, dizziness no history of atrial fibrillation Vitals/I&O/Wt Last Vital Signs Temp 98.1 F 10/19/25 11:47 Pulse 111 H 10/19/25 11:47 Resp 28 H 10/19/25 11:47 BP 108/59 10/19/25 11:47 Pulse Ox 93 10/19/25 11:47 O2 Del Method Nasal Cannula 10/19/25 11:16 O2 Flow Rate 4 10/19/25 11:16 FiO2 36 10/18/25 20:00 10/18/25 10/19/25 10/19/25 22:59 06:59 14:59 Intake Total 250 / 250 240 / 490 480 / 480 Output Total 1450 / 1450 1150 / 2600 Balance -1200 / -1200 -910 / -2110 480 / 480 Weight last 48 hrs Weight 112.8 kg Weight 115 kg Weight 106.594 kg Physical Exam 2 Const: COMMON NORMALS: no acute distress and patient oriented x3 Resp: COMMON NORMALS: normal respiratory effort, No retractions, No use of accessory muscles and clear to auscultation bilaterally AUSCULTATION: clear to auscultation bilaterally Cardio: COMMON NORMALS: S1 normal heart sound present and S2 normal heart sound present RATE: tachycardic RHYTHM: abnormal rhythm irregularly irregular HEART SOUNDS: S1 normal heart sound present and S2 normal heart sound present GI: COMMON NORMALS: Normal to inspection, nondistended, normoactive bowel sounds present and non-tender Extremity: COMMON NORMALS: no pedal edema Neuro: COMMON NORMALS: patient oriented x3 and CN's II-XII intact bilaterally Psych: COMMON NORMALS: mental status grossly normal Urinary Catheter Management: Hanley Latex Free: Cath Placed During This Visit: yes Reason for Continuing Indwelling Catheter: Accurate Measurement of Urinary Output in Critically Ill Patients Urinary Catheter Date of Insertion: 10/18/25 Urinary Catheter Time of Insertion: 16:10 Data 10/19/25 03:01 10/19/25 03:01 Micro: Microbiology 10/18/25 17:02 Blood Culture - Preliminary Blood SPECIMEN COLLECTED 10/18/25 17:00 Blood Culture - Preliminary Blood SPECIMEN COLLECTED A&P Assessment and plan 1. Acute respiratory failure with hypoxia: 2. Systolic CHF, acute: 3. Pneumonia: 4. Sepsis: 5. PAD (peripheral artery disease): 6. Non-ST elevation [place] (NSTEMI): 7. Atrial fibrillation with RVR: Plan: Acute hypoxic respiratory failure - Multifactorial - Systolic CHF exacerbation - Underlying COPD exacerbation - Pneumonia - With sepsis -With NSTEMI Plan - Admit to cardiac stepdown unit - Monitor respiratory status closely - BiPAP therapy - Lasix 40 IV twice daily - Monitor urine output, monitor creatinine - Cardiac echo - Serial EKGs, serial troponins, telemetry monitoring - Aspirin, statin- -cardiology consulted - Rocephin - Azithromycin - Blood cultures - Sputum cultures - Solu-Medrol 40 mg IV every 8 hours, de-escalate to prednisone 40 mg daily - DuoNeb- -budesonide - Full code - Lovenox for DVT prophylaxis AFibrillation with rapid ventricular response - Amiodarone drip - Therapeutic Lovenox NSTEMI - Complaints of chest pain associated with shortness of breath - Workup as above Peripheral arterial disease -Does have slightly diminished pulses DP PT bilaterally, slightly cool, good capillary fill, no pain, - Therapeutic Lovenox - Aspirin, statin - Doppler extremity pulses, - Arterial ultrasound, no acute findings PDMP PDMP Reviewed: Not Reviewed Attestations 2 Medical Necessity Statement*: patient requires hospitalization for acute hypoxic respiratory failure, systolic CHF, COPD, pneumonia, sepsis, atrial fibrillation rate response Diagnoses Acute respiratory failure with hypoxia J96.01 Systolic CHF, acute I50.21 Pneumonia J18.9 Sepsis A41.9 PAD (peripheral artery disease) I73.9 Non-ST elevation [place] (NSTEMI) I21.4 Atrial fibrillation with RVR I48.91
--- NOTE | 2025-10-19 13:16 | P.PN_ITS ---
Subjective 2 Subjective: Breathing much better but still requiring nasal cannula Vitals/I&O/Wt Last Vital Signs Temp 98.1 F 10/19/25 11:47 Pulse 111 H 10/19/25 11:47 Resp 28 H 10/19/25 11:47 BP 108/59 10/19/25 11:47 Pulse Ox 93 10/19/25 11:47 O2 Del Method Nasal Cannula 10/19/25 11:16 O2 Flow Rate 4 10/19/25 11:16 FiO2 36 10/18/25 20:00 10/18/25 10/19/25 10/19/25 22:59 06:59 14:59 Intake Total 250 / 250 240 / 490 480 / 480 Output Total 1450 / 1450 1150 / 2600 Balance -1200 / -1200 -910 / -2110 480 / 480 Weight last 48 hrs Weight 248 lb 10.903 oz Weight 253 lb 8.505 oz Weight 235 lb Physical Exam 2 Narrative: General: breathing less labored today Heart: Normal S1 and S2 with a regular rate and rhythm Lungs: cta Extremities: 1+ bilateral lower extremity edema (chronic) Neuro: Alert and oriented x 3 Urinary Catheter Management: Hanley Latex Free: Cath Placed During This Visit: yes Reason for Continuing Indwelling Catheter: Accurate Measurement of Urinary Output in Critically Ill Patients Urinary Catheter Date of Insertion: 10/18/25 Urinary Catheter Time of Insertion: 16:10 Data 10/19/25 03:01 10/19/25 03:01 Micro: Microbiology 10/18/25 17:02 Blood Culture - Preliminary Blood SPECIMEN COLLECTED 10/18/25 17:00 Blood Culture - Preliminary Blood SPECIMEN COLLECTED A&P Assessment and plan 1. Acute respiratory failure with hypoxia: 2. Non-ST elevation [place] (NSTEMI): 3. Pulmonary edema: 4. Dyslipidemia: 5. Acute CHF: Plan: - diuresing well with improvement in SOB - Lasix 40 mg IV twice daily ? Lovenox 1 mg/kg SQ twice daily ? Aspirin 81 mg daily - will review and report echo today - cath versus nuclear stress test depending on echo result PDMP PDMP Reviewed: Not Reviewed Attestations 2 Medical Necessity Statement*: Patient needs another 2 midnights in the hospital due to acute congestive heart failure exacerbation Coding Level of Care Code 15469 Diagnoses Acute respiratory failure with hypoxia J96.01 Non-ST elevation [place] (NSTEMI) I21.4 Pulmonary edema J81.1 Dyslipidemia E78.5 Acute CHF I50.9
--- NOTE | 2025-10-19 14:08 | ECG_ITS ---
[facility] Test Date: 2025-10-19 Pat Name: Aniket Linder Department: Room: 108 Gender: Male Entry Level Marketing Assistant: : 1960 Requested By: William Neri Order Number: [id number] Juan M MD: Wang Shields M.D. Measurements Intervals [place] Rate: 116 P: 0 DE: 0 QRS: -67 QRSD: 151 T: 59 QT: 387 QTc: 539 Interpretive Statements SINUS TACHYCARDIA SUPRAVENTRICULAR ECTOPIC BEATS RIGHT BUNDLE BRANCH BLOCK [120+ ms QRS DURATION, UPRIGHT V1, 40+ ms S IN I/aVL/V4/V5/V6] LEFT ANTERIOR FASCICULAR BLOCK [QRS AXIS <= -45, QR IN I, RS IN II] Compared to ECG 10/19/2025 10:00:56 NO SIGNIFICANT CHANGE Electronically Signed On 10-19-2025 17:03:06 EDITOR FARM JOURNAL by Wang Shields M.D. [email or web address] [id number]
[2025-10-19 15:42] LABS: Troponin 5 6HR 87.92 ng/L (0-15)
[2025-10-19 15:49] LABS: Troponin 5 6HR Delta -4.08 ng/L (0-12)
[2025-10-19] MEDS: cefTRIAXone 1,000 mg SDV 1000 MG IVP (17:28)
[2025-10-19] MEDS: pantoprazole 40 mg SDV IVP (17:30)
[2025-10-20] VITALS (11 sets, daily range): BP systolic 83–123; BP diastolic 61–84; PULSE 93–132; RESP 18–28; TEMP 36.1–36.9; O2SAT 90–98
[2025-10-20 02:31] LABS: Hematocrit 40.3 % (37-53); Hemoglobin 13.40 g/dL (11.27-16.99); Mean Corpuscular HGB Conc 33.3 g/dL (30-55); Mean Corpuscular Hemoglobin 28.7 pg (27-33); Mean Corpuscular Volume 86.3 fl (82-101); Nucleated Red Blood Cells % 0 %; Platelet Count 284 10^3/cmm (157-399); Red Blood Count 4.67 10^6/uL (3.85-5.65); White Blood Count 20.32 10^3/uL (3.29-11.43)
[2025-10-20 02:55] LABS: Alanine Aminotransferase 14 U/L (0-41); Albumin Level 3.6 g/dL (3.5-5.2); Alkaline Phosphatase 110 U/L (40-130); Anion Gap 16.9 (5-19); Aspartate Amino Transferase 13 U/L (0-40); Blood Urea Nitrogen 26 mg/dL (8-23); Calcium 8.7 mg/dL (8.5-10.5); Carbon Dioxide 25 mmol/L (22-29); Chloride 100 mmol/L (98-107); Globulin 3.2 g/dL (1.3-4.6); Glucose 309 mg/dL (65-115); Magnesium 2.2 mg/dL (1.7-2.3); Osmolality Calculated 302 mOsm/kg (285-295); Potassium 3.9 mmol/L (3.5-5.1); Sodium 138 mmol/L (136-145); Total Protein 6.8 g/dL (6.6-8.7)
[2025-10-20] MEDS: AMIODARONE HCL/D5W 900 MG/500 ML BAG 16.67 MG IV (03:43)
[2025-10-20] MEDS: ATORVASTATIN 20 MG TABLET PO (05:43)
--- NOTE | 2025-10-20 09:16 | P.PN_ITS ---
Subjective 2 Subjective: Still with SOB at rest. Swelling improving in legs Vitals/I&O/Wt Last Vital Signs Temp 96.9 F L 10/20/25 08:00 Pulse 110 H 10/20/25 08:00 Resp 18 10/20/25 08:00 BP 115/80 10/20/25 08:00 Pulse Ox 90 10/20/25 08:00 O2 Del Method Nasal Cannula 10/20/25 08:00 O2 Flow Rate 4 10/20/25 08:00 FiO2 40 10/20/25 03:00 10/19/25 10/20/25 10/20/25 22:59 06:59 14:59 Intake Total 730 / 1570 480 / 480 Output Total 750 / 750 Balance -20 / 820 480 / 480 Weight last 48 hrs Weight 243 lb 2.718 oz Weight 248 lb 10.903 oz Weight 253 lb 8.505 oz Weight 235 lb Physical Exam 2 Narrative: General: increased work of breathing Neck: No jugular venous distention sitting upright or carotid bruits Heart: irregular, tachy Lungs: decreased breath sounds, using accessory muscles Extremities: trace edema Neuro: Alert and oriented x 3 Urinary Catheter Management: Hanley Latex Free: Cath Placed During This Visit: yes Reason for Continuing Indwelling Catheter: Acute Urinary Retention or Obstruction Urinary Catheter Date of Insertion: 10/18/25 Urinary Catheter Time of Insertion: 16:10 Data 10/20/25 02:04 10/20/25 02:04 Micro: Microbiology 10/18/25 17:00 Blood Culture - Preliminary Blood NEGATIVE TO DATE 10/18/25 17:02 Blood Culture - Preliminary Blood NEGATIVE TO DATE A&P Assessment and plan 1. Acute respiratory failure with hypoxia: 2. Non-ST elevation [place] (NSTEMI): 3. Pulmonary edema: 4. Dyslipidemia: 5. Acute CHF: 6. Tachycardia: Plan: - accuracy of I/Os suspect last 24 hours - appears more dyspnic to me today with increased work of breathing - mild bump up in Cr - Lasix 40 mg IV twice daily - get PCXR ? Lovenox 1 mg/kg SQ twice daily for possibly ACS - Abx per hospitalist for possible lung infection - Leukocytosis likely from steroids ? Aspirin 81 mg daily - echo not performed when last checked. Will recheck - cath versus nuclear stress test depending on echo result - strict I/Os discussed with nurse - tachycardic with frequent PAcs and runs of PAT on monitor with intermittent p waves. Will repeat EKG. On IV amio to try to control frequent PACs and runs. BP on low end of normal. There was question of atrial fibrillation but so far EKGs do not show afib PDMP PDMP Reviewed: Not Reviewed Attestations 2 Medical Necessity Statement*: Patient needs at least 2 more midnights in the hospital due to acute hypoxic respiratory failure Coding Level of Care Code Acute Code for g Fwd Diagnoses Acute respiratory failure with hypoxia J96.01 Non-ST elevation NE (NSTEMI) I21.4 Pulmonary edema J81.1 Dyslipidemia E78.5 Acute CHF I50.9 Tachycardia R00.0
--- NOTE | 2025-10-20 09:31 | ECG_ITS ---
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 Measurements Intervals [place] Rate: 122 P: 0 MN: 0 QRS: -76 QRSD: 167 T: 45 QT: 379 QTc: 540 Interpretive Statements MULTIFOCAL ATRIAL TACHYCARDIA (MAT) RIGHT BUNDLE BRANCH BLOCK [120+ ms QRS DURATION, UPRIGHT V1, 40+ ms S IN I/aVL/V4/V5/V6] LEFT ANTERIOR FASCICULAR BLOCK [QRS AXIS <= -45, QR IN I, RS IN II] Compared to ECG 10/19/2025 14:08:42 NO SIGNIFICANT CHANGE Electronically Signed On 10-20-2025 12:03:57 CANDY DEPARTMENT MANAGER by Wang Shields M.D. [email or web address] [id number]
--- NOTE | 2025-10-20 09:32 | XRR_ITS ---
PROCEDURE INFORMATION: Exam: XR Chest Exam date and time: 10/20/2025 10:37 AM Age: 65 years old Clinical indication: Shortness of breath; Additional info: SOB TECHNIQUE: Imaging protocol: Radiologic exam of the chest. Views: 1 view. COMPARISON: CR (CHEST, ) 10/18/2025 1:41 PM FINDINGS: Lungs: No active infiltrate or focal parenchymal abnormality. There is mild pulmonary vascular congestion. This is decreased from the prior exam. Pleural spaces: No pleural effusion. No pneumothorax. Heart/Mediastinum: Heart is enlarged. Bones/joints: Unremarkable. XR/XR chest 1V portable [id number] IMPRESSION: Decreasing congestive heart failure.
[2025-10-20] MEDS: FUROsemide 10 mg/mL SDV 4mL 40 MG IVP ×2 (09:33→20:35)
--- NOTE | 2025-10-20 10:52 | P.PN_ITS ---
Subjective 2 Subjective: Patient was seen this morning, currently alert oriented x 3, follow commands no chest pain, palpitations, no lightheadedness, dizziness yesterday he went into A-fib with RVR versus sinus tachycardia required amiodarone drip, currently appears to be in sinus tachycardia heart rates in the 110s Vitals/I&O/Wt Last Vital Signs Temp 96.9 F L 10/20/25 08:00 Pulse 110 H 10/20/25 08:00 Resp 18 10/20/25 08:00 BP 115/80 10/20/25 08:00 Pulse Ox 90 10/20/25 08:00 O2 Del Method Nasal Cannula 10/20/25 08:00 O2 Flow Rate 4 10/20/25 08:00 FiO2 40 10/20/25 03:00 10/19/25 10/20/25 10/20/25 22:59 06:59 14:59 Intake Total 730 / 1570 480 / 480 Output Total 750 / 750 Balance -20 / 820 480 / 480 Weight last 48 hrs Weight 110.3 kg Weight 112.8 kg Weight 115 kg Weight 106.594 kg Physical Exam 2 Const: COMMON NORMALS: no acute distress and patient oriented x3 Resp: COMMON NORMALS: normal respiratory effort, No retractions and No use of accessory muscles AUSCULTATION: crackles and wheezes Cardio: COMMON NORMALS: S1 normal heart sound present and S2 normal heart sound present RATE: tachycardic RHYTHM: abnormal rhythm irregularly irregular HEART SOUNDS: S1 normal heart sound present and S2 normal heart sound present GI: COMMON NORMALS: Normal to inspection, nondistended, normoactive bowel sounds present and non-tender Extremity: COMMON NORMALS: no calf tenderness NARRATIVE EXTREMITY EXAM: 2+ pitting edema bilateral extremities Neuro: COMMON NORMALS: patient oriented x3 Psych: COMMON NORMALS: mental status grossly normal Urinary Catheter Management: Hanley Latex Free: Cath Placed During This Visit: yes Reason for Continuing Indwelling Catheter: Acute Urinary Retention or Obstruction Urinary Catheter Date of Insertion: 10/18/25 Urinary Catheter Time of Insertion: 16:10 Data 10/20/25 02:04 10/20/25 02:04 Micro: Microbiology 10/18/25 17:00 Blood Culture - Preliminary Blood NEGATIVE TO DATE 10/18/25 17:02 Blood Culture - Preliminary Blood NEGATIVE TO DATE A&P Assessment and plan 1. Acute respiratory failure with hypoxia: 2. Systolic CHF, acute: 3. Pneumonia: 4. Sepsis: 5. PAD (peripheral artery disease): 6. Non-ST elevation [place] (NSTEMI): 7. Atrial fibrillation with RVR: Plan: Acute hypoxic respiratory failure - Multifactorial - Systolic CHF exacerbation - Underlying COPD exacerbation - Pneumonia - With sepsis -With NSTEMI Plan - Admit to cardiac stepdown unit - Monitor respiratory status closely - BiPAP therapy - Lasix 40 IV twice daily - Monitor urine output, monitor creatinine - Cardiac echo pending - Serial EKGs, serial troponins, telemetry monitoring - Aspirin, statin- -cardiology consulted - Rocephin - Azithromycin - Blood cultures - Sputum cultures - Solu-Medrol 40 mg IV every 8 hours, de-escalate to prednisone 40 mg daily - DuoNeb- -budesonide - Full code - Lovenox for DVT prophylaxis AFibrillation with rapid ventricular response versus sinus tachycardia - Amiodarone drip, de-escalated to p.o. amiodarone - Therapeutic Lovenox NSTEMI - Complaints of chest pain associated with shortness of breath - Workup as above Peripheral arterial disease -Does have slightly diminished pulses DP PT bilaterally, slightly cool, good capillary fill, no pain, - Therapeutic Lovenox - Aspirin, statin - Doppler extremity pulses, - Arterial ultrasound, no acute findings Plan for today continue IV diuresis, PDMP PDMP Reviewed: Not Reviewed Attestations 2 Medical Necessity Statement*: Patient requires hospitalization for acute hypoxic respiratory failure, NSTEMI Diagnoses Acute respiratory failure with hypoxia J96.01 Systolic CHF, acute I50.21 Pneumonia J18.9 Sepsis A41.9 PAD (peripheral artery disease) I73.9 Non-ST elevation [place] (NSTEMI) I21.4 Atrial fibrillation with RVR I48.91
--- NOTE | 2025-10-20 13:56 | PM.MISC ---
Miscellaneous Note Purpose of Documentation: Echo result Note: Echo performed while patient tachycardic with HR of 110s - 120s showing: Severe left ventricular enlargement, severely reduced systolic function, EF 31% and no significant valvur disease Will give dig 0.25mg x 1 now and start metoprolol tartrate 25mg bid Continue diuresis Will need left heart cath when able to lay flat - likely tuesday
[2025-10-20] MEDS: digoxin 250 mcg/ml INJ 2 mL IVP (14:50)
--- NOTE | 2025-10-20 14:59 | USCV_ITS ---
Aniket Linder Age: 65 Gender: M : 1960 Exam Date: 10/18/2025 15:28 Ordering Phys: Juvenal Nair MD Technologist: Seamus Boyd [place] [facility] [place] sob BP: 121 / 78 HR: 118 Rhythm: Sinus Technical Quality: Fair MEASUREMENTS (Male / Female) Normal Values 2D ECHO LV Diastolic Diameter PLAX 6.7 cm 4.2 - 5.9 / 3.9 - 5.3 cm IVS Diastolic Thickness 0.5 cm 0.6 - 1.0 / 0.6 - 0.9 cm IVS Systolic Thickness 1.1 cm LVPW Diastolic Thickness 1.0 cm 0.6 - 1.0 / 0.6 - 0.9 cm LVPW Systolic Thickness 1.1 cm LVOT Diameter 2.1 cm LV Ejection Fraction 2D Teich 46.0 % LV Ejection Fraction MOD 4C 31.3 % LV Ejection Fraction MOD 2C 28.2 % LV Ejection Fraction 2C AL 27.8 % LA Diameter 5.0 cm RA Systolic Volume 4C AL 44.2 ml RA Systolic Volume 4C MOD 44.9 ml LA Sys Volume AL 80.7 cm cubed LA Sys Volume Index AL 34.0 cm cubed/m squared Aorta at Sinotubular Diameter 3.2 cm IVC Diameter 2.3 cm M-MODE LA Ao Ratio MM 1.4 AV Cusp Separation MM 2.0 cm DOPPLER AV Peak Velocity 128.0 cm/s LVOT Peak Velocity 81.0 cm/s AV Area Cont Eq vti 2.2 cm squared AV Area Cont Eq pk 2.2 cm squared TV Peak Velocity 205.3 cm/s TR Peak Velocity 217.0 cm/s TR Peak Gradient 18.8 mmHg TR Mean Velocity 177.0 cm/s TR Mean Gradient 13.0 mmHg TR Velocity Time Integral 59.1 cm PV Peak Velocity 83.3 cm/s RV Ejection Time 0.2 s FINDINGS Left Ventricle Severely increased left ventricular cavity size. Severely decreased left ventricular systolic function with severe hypokinesis of most of the macias except for the septum. Left ventricular ejection fraction is 31%. Normal left ventricular wall thickness. Indeterminate diastolic function due to irregular rhythm and tachycardia. Right Ventricle Normal right ventricular size and systolic function. RVSP could not be calculated due to incomplete tricuspid regurgitation velocity profile. Right Atrium Normal right atrial size. Left Atrium Mildly increased left atrial size. IA Septum Normal appearance of the interatrial septum. Mitral Valve Mild mitral valve regurgitation. Aortic Valve Mild aortic valve calcification. No aortic valve stenosis. Trace aortic valve regurgitation. Tricuspid Valve Structurally normal tricuspid valve. No tricuspid valve stenosis. No tricuspid valve regurgitation. Pulmonic Valve Structurally normal pulmonic valve. No pulmonary valve stenosis. No pulmonary valve regurgitation. Pericardium Trace pericardial effusion. Aorta Normal size aortic root and proximal ascending aorta. IVC Midlly dilated IVC dimension with >50% respiratory change of the inferior vena cava. CONCLUSIONS Severely increased left ventricular cavity size. Severely decreased left ventricular systolic function with severe hypokinesis of most of the macias except for the septum. Left ventricular ejection fraction is 31%. No significant valvular abnormalities. Wang Shields MD, FACC (Electronically Signed) Final Date: 20 October 2025 13:50 S
--- NOTE | 2025-10-20 15:15 | PC.NURSE ---
dr rader had put in order to dc amioderone drip earlier today.this nurse called dr rader to clarify order..since oral amio had not been started and heart rate remains elevated.he ordered to let amio run until 1600...then turn off
[2025-10-20] MEDS: cefTRIAXone 1,000 mg SDV 1000 MG IVP (17:12)
[2025-10-20] MEDS: pantoprazole 40 mg SDV IVP (17:12)
[2025-10-21] VITALS (63 sets, daily range): BP systolic 98–153; BP diastolic 64–98; PULSE 75–95; RESP 4–32; TEMP 36.2–36.6; O2SAT 79–99
[2025-10-21 03:09] LABS: Hematocrit 45.2 % (37-53); Hemoglobin 14.60 g/dL (11.27-16.99); Mean Corpuscular HGB Conc 32.3 g/dL (30-55); Mean Corpuscular Hemoglobin 27.9 pg (27-33); Mean Corpuscular Volume 86.4 fl (82-101); Nucleated Red Blood Cells % 0 %; Platelet Count 268 10^3/cmm (157-399); Red Blood Count 5.23 10^6/uL (3.85-5.65); White Blood Count 21.86 10^3/uL (3.29-11.43)
[2025-10-21 03:35] LABS: Alanine Aminotransferase 20 U/L (0-41); Albumin Level 4.0 g/dL (3.5-5.2); Alkaline Phosphatase 116 U/L (40-130); Blood Urea Nitrogen 35 mg/dL (8-23); Calcium 9.6 mg/dL (8.5-10.5); Carbon Dioxide 28 mmol/L (22-29); Chloride 98 mmol/L (98-107); Globulin 2.7 g/dL (1.3-4.6); Glucose 131 mg/dL (65-115); Magnesium 2.3 mg/dL (1.7-2.3); Osmolality Calculated 298 mOsm/kg (285-295); Sodium 139 mmol/L (136-145); Total Protein 6.7 g/dL (6.6-8.7)
[2025-10-21 03:45] LABS: Anion Gap 17.2 (5-19); Aspartate Amino Transferase 22 U/L (0-40); Potassium 4.2 mmol/L (3.5-5.1)
[2025-10-21] MEDS: ATORVASTATIN 20 MG TABLET PO (04:38)
[2025-10-21 05:49] LABS: ABG PCO2 45.7 mmHg (35-45); ABG PH Result 7.44 (7.35-7.45); Alveolar-Arterial Oxygen Gradi 23.3 mmHg (5-10); Arterial Blood Gas Hematocrit 50.3 % (42-52); Blood Gas Allen Test Pos; Blood Gas Sample Site Radial, right; Blood Gas Sample Type Arterial; Carboxyhemoglobin 0.5 %THgb (0.4-20.1); Glucose Level-ABG 175.0 mg/dL (70-115); HCO3 ABG 30.7 mmol/L (22-26); Ionized Calcium Level - ABG 1.2 mmol/L (1.1-1.4); Methemoglobin 1.0 % (0.4-1.5); Oxygen Saturation ABG > 99.1; PEEP 8.0 cmH20; PO2 ABG 228.0 mmHg (80.0-100.0); PO2 FiO2 Ratio Arterial Blood 350; Potassium Level - ABG 3.9 mmol/L (3.5-5.0); Sodium Level - ABG 140.0 mmol/L (131-143)
[2025-10-21] MEDS: FUROsemide 10 mg/mL SDV 4mL 40 MG IVP ×2 (09:14→21:29)
--- NOTE | 2025-10-21 11:15 | PC.SOCIAL ---
IMM Update pg 2 of IMM updated and reviewed w/ patients . Copy provided and copy dated, initialed and placed in chart.
--- NOTE | 2025-10-21 13:40 | P.PN_ITS ---
Subjective 2 Subjective: breathing ok denies productive cough, fevers, or chest pain awaiting heart cath Vitals/I&O/Wt Last Vital Signs Temp 97.3 F L 10/21/25 11:03 Pulse 80 10/21/25 11:35 Resp 18 10/21/25 11:35 BP 104/70 10/21/25 11:03 Pulse Ox 90 10/21/25 11:35 O2 Del Method Nasal Cannula 10/21/25 11:35 O2 Flow Rate 5 10/21/25 11:35 FiO2 45 10/21/25 09:35 10/20/25 10/21/25 10/21/25 22:59 06:59 14:59 Intake Total 1230 / 2190 960 / 960 Output Total 1125 / 3125 1400 / 4525 1500 / 1500 Balance 105 / -935 -1400 / -2335 -540 / -540 Weight last 48 hrs Weight 107 kg Weight 110.3 kg Physical Exam 2 Const: COMMON NORMALS: no acute distress and patient oriented x3 Resp: COMMON NORMALS: normal respiratory effort, No retractions and No use of accessory muscles AUSCULTATION: crackles and wheezes Cardio: COMMON NORMALS: S1 normal heart sound present and S2 normal heart sound present RATE: tachycardic RHYTHM: abnormal rhythm irregularly irregular HEART SOUNDS: S1 normal heart sound present and S2 normal heart sound present GI: COMMON NORMALS: Normal to inspection, nondistended, normoactive bowel sounds present and non-tender Extremity: COMMON NORMALS: no calf tenderness NARRATIVE EXTREMITY EXAM: 2+ pitting edema bilateral extremities Neuro: COMMON NORMALS: patient oriented x3 Psych: COMMON NORMALS: mental status grossly normal Urinary Catheter Management: Hanley Latex Free: Cath Placed During This Visit: yes Reason for Continuing Indwelling Catheter: Accurate Measurement of Urinary Output in Critically Ill Patients Urinary Catheter Date of Insertion: 10/18/25 Urinary Catheter Time of Insertion: 16:10 Data 10/21/25 02:32 10/21/25 02:32 Micro: Microbiology 10/19/25 08:52 Gram Stain - Final Sputum - Expectorated Sputum Sputum Culture - Preliminary A&P Assessment and plan 1. Acute CHF: 2. Atrial fibrillation with RVR: Plan: 1. Acute respiratory failure with hypoxia: 2. Systolic CHF, acute: 3. Pneumonia: 4. Sepsis: 5. PAD (peripheral artery disease): 6. Non-ST elevation [place] (NSTEMI): 7. Atrial fibrillation with RVR: Plan: Acute hypoxic respiratory failure - Multifactorial - Systolic CHF exacerbation - Underlying COPD exacerbation - Pneumonia - With sepsis -With NSTEMI Plan - Admit to cardiac stepdown unit - Monitor respiratory status closely - BiPAP therapy -wean O2 - Lasix 40 IV twice daily - Monitor urine output, monitor creatinine - Cardiac echo --> EF 31%, Severely increased left ventricular cavity size. Severely decreased left ventricular systolic function with severe hypokinesis of most of the macias except for the septum. Left ventricular ejection fraction is 31%. No significant valvular abnormalities. - Serial EKGs, serial troponins, telemetry monitoring - Aspirin, statin- -cardiology consulted--> ?heart cath - Rocephin - Azithromycin - Blood cultures - Sputum cultures - Solu-Medrol 40 mg IV every 8 hours, de-escalate to prednisone 40 mg daily - DuoNeb- -budesonide - Full code - Lovenox for DVT prophylaxis AFibrillation with rapid ventricular response versus sinus tachycardia - Amiodarone drip, de-escalated to p.o. amiodarone - Therapeutic Lovenox NSTEMI - Complaints of chest pain associated with shortness of breath - Workup as above Peripheral arterial disease -Does have slightly diminished pulses DP PT bilaterally, slightly cool, good capillary fill, no pain, - Therapeutic Lovenox - Aspirin, statin - Doppler extremity pulses, - Arterial ultrasound, no acute findings PDMP PDMP Reviewed: Not Reviewed Attestations 2 Medical Necessity Statement*: evaluation for nstemi, and treatment for pneumonia Coding Level of Care Code 99996 Diagnoses Acute CHF I50.9 Atrial fibrillation with RVR I48.91
--- NOTE | 2025-10-21 14:13 | P.PN_ITS ---
<Statement entered by Wang Shields MD - 10/22/25 12:43> Patient was evaluated and cared for in conjunction with the advanced practice practitioner. Due to computer system upgrade I was not able to add my attestation note to the chart yesterday and therefore am adding it today. I personally saw the patient and reviewed the chart and all pertinent data yesterday. I discussed the patient in detail with the advanced practice practitioner yesterday. Please see their note for complete assessment and agreed upon plan of care for the patient. Subjective 2 Subjective: Patient still has some shortness of breath. Currently improving. Still has crackles and edema. O2 sat 90 on 5 L NC. -2335 over 24hours. Echo showed EF 31% with severe hypokinesis of most of the macias except for the septum. Vitals/I&O/Wt Last Vital Signs Temp 97.3 F L 10/21/25 11:03 Pulse 80 10/21/25 11:35 Resp 18 10/21/25 11:35 BP 104/70 10/21/25 11:03 Pulse Ox 90 10/21/25 11:35 O2 Del Method Nasal Cannula 10/21/25 11:35 O2 Flow Rate 5 10/21/25 11:35 FiO2 45 10/21/25 09:35 10/20/25 10/21/25 10/21/25 22:59 06:59 14:59 Intake Total 1230 / 2190 960 / 960 Output Total 1125 / 3125 1400 / 4525 1500 / 1500 Balance 105 / -935 -1400 / -2335 -540 / -540 Weight last 48 hrs Weight 235 lb 14.314 oz Weight 243 lb 2.718 oz Physical Exam 2 Narrative: General: No apparent distress, HENMT: normoceophalic Neck: No carotid bruit bilaterally Respiratory: Normal respiratory effort, bilateral lower lobes crackles present, no use of accessory muscles Cardio: No JVD, regular rate, regular rhythm, S1 S2 normal, no murmurs, peripheral pulses 2+ radial palpated bilaterally GI: Normal to inspection, nondistended Extremities: Full ROM, normal, normal capillary refill, no cyanosis, 1+ edema bilateral lower extremities Neuro: Alert and oriented x4, no focal motor deficits Psych: Affect normal, denies suicidal ideation, mental status grossly normal Skin: No rashes or lesions noted, no wounds Urinary Catheter Management: Hanley Latex Free: Cath Placed During This Visit: yes Reason for Continuing Indwelling Catheter: Accurate Measurement of Urinary Output in Critically Ill Patients Urinary Catheter Date of Insertion: 10/18/25 Urinary Catheter Time of Insertion: 16:10 Data 10/21/25 02:32 10/21/25 02:32 Micro: Microbiology 10/19/25 08:52 Gram Stain - Final Sputum - Expectorated Sputum Sputum Culture - Preliminary A&P Assessment and plan 1. Acute respiratory failure with hypoxia: 2. Non-ST elevation [place] (NSTEMI): 3. Pulmonary edema: 4. Dyslipidemia: 5. Acute CHF: 6. Tachycardia: Plan: Continue diuresing patient. Currently getting lasix 40 q12. Patient has improved. Still has some shortness of breath. If patient is able to lie flat, will plan on taking for [facility] possible PCI tomorrow around 10 AM. Patient agrees to proceed. Continue to watch renal function closely with diuresis. It is stable at this time. Heart rates are currently controlled. Continue Metoprolol 25 BID. Continue amiodarone. Continue aspirin, lovenox. Will start GDMT after patient completely euvolemic. PDMP PDMP Reviewed: Not Reviewed Attestations 2 Medical Necessity Statement*: Deferred to primary. Coding Level of Care Code Acute Code for [facility] Fwd Diagnoses Acute respiratory failure with hypoxia J96.01 Non-ST elevation [place] (NSTEMI) I21.4 Pulmonary edema J81.1 Dyslipidemia E78.5 Acute CHF I50.9 Tachycardia R00.0
--- NOTE | 2025-10-21 17:03 | ECG_ITS ---
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 Measurements Intervals [place] Rate: 86 P: 42 GA: 209 QRS: -73 QRSD: 161 T: 59 QT: 464 QTc: 556 Interpretive Statements SINUS RHYTHM WITH OCCASIONAL SUPRAVENTRICULAR PREMATURE COMPLEXES POSSIBLE LEFT ATRIAL ENLARGEMENT [-0.1mV P-WAVE IN V1/V2] RIGHT BUNDLE BRANCH BLOCK [120+ ms QRS DURATION, UPRIGHT V1, 40+ ms S IN I/aVL/V4/V5/V6] LEFT ANTERIOR FASCICULAR BLOCK [QRS AXIS <= -45, QR IN I, RS IN II] Compared to ECG 10/20/2025 09:49:22 Ectopic atrial tachycardia, multifocal no longer present Electronically Signed On 10-22-2025 20:53:24 SOUP PERSON by Mode Escalera M.D. [email or web address] [id number]
[2025-10-21] MEDS: pantoprazole 40 mg SDV IVP (17:33)
[2025-10-21] MEDS: cefTRIAXone 1,000 mg SDV 1000 MG IVP (17:33)
[2025-10-22] VITALS (32 sets, daily range): BP systolic 109–151; BP diastolic 66–94; PULSE 75–90; RESP 12–25; TEMP 36.6–37; O2SAT 86–97
[2025-10-22] MEDS: ATORVASTATIN 20 MG TABLET PO (04:31)
[2025-10-22 07:23] LABS: Hematocrit 46.0 % (37-53); Hemoglobin 15.20 g/dL (11.27-16.99); Mean Corpuscular HGB Conc 33.0 g/dL (30-55); Mean Corpuscular Hemoglobin 28.7 pg (27-33); Mean Corpuscular Volume 86.8 fl (82-101); Nucleated Red Blood Cells % 0 %; Platelet Count 347 10^3/cmm (157-399); Red Blood Count 5.30 10^6/uL (3.85-5.65); White Blood Count 17.01 10^3/uL (3.29-11.43)
[2025-10-22 07:44] LABS: Anion Gap 16.6 (5-19); Blood Urea Nitrogen 40 mg/dL (8-23); Calcium 9.9 mg/dL (8.5-10.5); Carbon Dioxide 31 mmol/L (22-29); Chloride 97 mmol/L (98-107); Glucose 170 mg/dL (65-115); Osmolality Calculated 304 mOsm/kg (285-295); Potassium 4.6 mmol/L (3.5-5.1); Sodium 140 mmol/L (136-145)
[2025-10-22] MEDS: FUROsemide 10 mg/mL SDV 4mL 40 MG IVP ×2 (08:57→21:48)
--- NOTE | 2025-10-22 10:45 | P.PN_ITS ---
<Statement entered by Oleg Perez MD - 10/23/25 18:56> Patient was evaluated and cared for in conjunction with an advanced practice practitioner. I personally examined the patient and reviewed the chart and all pertinent data including imaging, telemetry, and laboratory results. I discussed the patient in detail with the advanced practice practitioner. Please see their note for complete H&P testing result and agreed upon plan of care for the patient Subjective 2 Subjective: Patient doing well this morning. Requiring less oxygen. He was able to lie flat at night without issues and slept much better. -271 over 24 hours. Vitals are stable. Labs are stable. Denies any chest pain or shortness of breath. Vitals/I&O/Wt Last Vital Signs Temp 97.8 F 10/22/25 07:28 Pulse 84 10/22/25 07:51 Resp 16 10/22/25 07:39 BP 122/82 10/22/25 07:28 Pulse Ox 97 10/22/25 07:39 O2 Del Method Oxymask 10/22/25 07:54 O2 Flow Rate 3 10/22/25 07:54 FiO2 45 10/22/25 01:40 10/21/25 10/22/25 10/22/25 22:59 06:59 14:59 Intake Total 610 / 1570 Output Total 700 / 2200 1600 / 3800 Balance -90 / -630 -1600 / -2230 Weight last 48 hrs Weight 232 lb 2.348 oz Weight 235 lb 14.314 oz Physical Exam 2 Narrative: General: No apparent distress, HENMT: normoceophalic Neck: No carotid bruit bilaterally Respiratory: Normal respiratory effort, bilateral lower lobes crackles present, no use of accessory muscles Cardio: No JVD, regular rate, regular rhythm, S1 S2 normal, no murmurs, peripheral pulses 2+ radial palpated bilaterally GI: Normal to inspection, nondistended Extremities: Full ROM, normal, normal capillary refill, no cyanosis, 1+ edema bilateral lower extremities Neuro: Alert and oriented x4, no focal motor deficits Psych: Affect normal, denies suicidal ideation, mental status grossly normal Skin: No rashes or lesions noted, no wounds Urinary Catheter Management: Hanley Latex Free: Cath Placed During This Visit: yes Reason for Continuing Indwelling Catheter: Accurate Measurement of Urinary Output in Critically Ill Patients Urinary Catheter Date of Insertion: 10/18/25 Urinary Catheter Time of Insertion: 16:10 Data 10/22/25 07:04 10/22/25 07:04 Micro: Microbiology 10/19/25 08:52 Gram Stain - Final Sputum - Expectorated Sputum Sputum Culture - Preliminary A&P Assessment and plan 1. Acute respiratory failure with hypoxia: 2. Non-ST elevation [place] (NSTEMI): 3. Pulmonary edema: 4. Dyslipidemia: 5. Acute CHF: 6. Tachycardia: Plan: Continue diuresing patient. Currently getting lasix 40 q12. Patient has improved. Shortness of breath has resolved. [facility] today with possible PCI. Continue to watch renal function closely with diuresis. It is stable at this time. Heart rates are currently controlled. Continue Metoprolol 25 BID. Continue amiodarone. Continue aspirin, lovenox. Will start GDMT after [facility] if creatinine allows. PDMP PDMP Reviewed: Not Reviewed Attestations 2 Medical Necessity Statement*: Deferred to primary Coding Level of Care Code Acute Code for [facility] Diagnoses Acute respiratory failure with hypoxia J96.01 Non-ST elevation [place] (NSTEMI) I21.4 Pulmonary edema J81.1 Dyslipidemia E78.5 Acute CHF I50.9 Tachycardia R00.0
--- NOTE | 2025-10-22 10:52 | XACV_ITS ---
Exam Room: 2 Ht: 178 cm Wt: 107 kg BSA: 2.33 m2 Gender: Male : 1960 Any Known Allergies: No known allergies Exam Priority: Routine Procedure(s): Procedure Description: Diagnostic procedure Procedure Description: Left Heart Catheterization Procedure Description: Left ventriculography Procedure Description: Coronary Angiography LEELEEChris ROBLES; Diagnostic Cath Status: Elective Diagnostic Findings * No disease noted in the Left Main, Left Anterior Descending, Right, or Circumflex coronary arteries. * Coronary angiography shows right dominance. PCI Indication: Other Conclusions 1. No disease noted in the Left Main, Left Anterior Descending, Right, or Circumflex coronary arteries. 2. Severe left ventricular systolic dysfunction. Ejection fraction of 20%. Recommendations * Continue current medical management and risk factor modification. Diagnostic RX Recommendation: medical therapy and/or counseling Ventriculography Ejection Fraction: 20.0 % Pressures Phase:Rest AO : 108 / 76 ( 88 ) @ 11:25:00 AM 109 / 69 ( 86 ) @ 11:33:00 AM 110 / 69 ( 86 ) @ 11:33:00 AM LV : 117 / 6 / 29 @ 11:32:00 AM 111 / 0 / 28 @ 11:33:00 AM 112 / 1 / 29 @ 11:33:00 AM Valves Phase:DefaultPhase AV : 1.0 @ 11:42:43 AM AV Mean Gradient: 0.0 @ 11:42:43 AM Clinical Evaluation EBL: 5mL-10mL Procedural Details Procedure Consent Obtained. Admit Source: In Patient. Pre-Procedure Time Out. Identified patient by full name and date of as verbalized by the patient/guarantor. Does the consent match the physician's order: Yes. Accurate & Complete Informed Consent: Yes. Inpatient/Outpatient History & Physical on Chart: Yes. If H&P is completed, is and addenduem needed: No; If yes, is the addendum complete: N/A. Visualize and Verify Site with Patient/Guarantor: N/A. Relevant Radiology Images available: Yes. The risks, benefits, and alternatives of sedation and/or procedure were discussed by physician. The patient agrees to continue. Procedure started. [facility] Clinical Fraility Score: 4: Vulnerable. Dermatology Sales Representative Indications: LV Dysfunction. Chest Pain Symptom Assessment: Typical Angina Symptoms. Correct patient, site and procedure confirmed by cath team. Current diagnosis: New onset heart failure with low EF. PERRLA. Strong, equal hand mix chemist bilaterally. Lungs clear x 5 lobes. IV Site on Arrival: 18 gauge in the right anticubital. IV Fluids: 0.9% NaCl at KVO. 0 mL infused prior to metallurgical lab technician. Pre Procedural Pulses: bilateral radial was 2+. Pre Procedural Pulses: bilateral dorsalis pedis was Doppled. Pre Procedural Pulses: bilateral posterior tibial was Doppled. Oxygen started at 6liters/min via oxymask. right radial was prepped with chloroprep then draped in the usual sterile fashion. right groin was prepped with chloroprep then draped in the usual sterile fashion. Physician notified. Baseline sample Acquired. HR: 82 BPM. Physician arrived. Physician scrubbed in. Immediate Pre-Procedure Time Out. Correct Patient: Yes; Correct Procedure: Yes; Correct Site: Yes; Correct Patient Position: Yes; Correct Supplies: Yes; Dried Flammable Prep: Yes; Blood Products Available: No;. Lidocaine 1% infiltrated to the right radial. Arterial access obtained. A 5 mauritanian Joel catheter in over wire. Multiple views taken of left coronary artery. Catheter redirected to the RCA. Multiple views taken of right coronary artery. Catheter removed over the exchange wire. A 5 mauritanian Angled Pig catheter in over wire. EDP Sample taken: LV 117/6,29; HR: 78 BPM; SpO2: 91%. LV gram performed in FRANCIS @ 10 mL/second for a total of 30 mL. EDP Sample taken: LV 111/0,28; HR: 80 BPM; SpO2: 92%. Pullback taken: LV 112/1,29; AO 109/69(86); Mean: 0mmHg, Peak to Peak: 1mmHg, SEP: 17sec/min; HR: 81 BPM; SpO2: 91%. Catheter removed over the exchange wire. A TR Band was successful obtaining hemostatsis at the Right Radial artery insertion site. Physician scrubbed out. Post Procedure: Pulses reassessed and unchanged. PERRLA. Strong, equal hand mix chemist bilaterally. No VTE prophylaxis required. Medication's Wasted: Lidocaine 1% = 18 mL. Medication's Wasted: Nitro = 49.8 mg. Medication's Wasted: Heparin = 1000 units. Medication's Wasted: Other = Fentanyl 75mcg. Total IV fluids: 20 mL. Post-op diagnosis: New onset heart failure, severe LV dysfunction. Complications: None. Estimated blood loss: 5mL-10mL. Responsiveness - Normal response to verbal stimuli; alert and oriented, PERRLA. Airway - Unaffected, no intervention required; spontaneous ventilation. Circulation: W/N/L, pulses unchanged. Nausea/Vomiting: No. Procedure completed. Patient transferred by bed to 1st floor. Vital chart was stopped. Access Site Site: Right Radial artery Sheath Size: 6 Fr Hemostasis Method: TR Band Hemostasis Success: Successful Procedure Medications Start: 11:14 AM Stop: 11:14 AM Medication: Versed Amount: 1 mg Route: I.V. Start: 11:14 AM Stop: 11:14 AM Medication: Fentanyl Amount: 25 mcg Route: I.V. Start: 11:22 AM Stop: 11: AM Medication: Versed Amount: 1 mg Route: I.V. Start: 11:24 AM Stop: 11:24 AM Medication: Nitrogylcerin Amount: 200 mcg Route: I.A. Start: 11:24 AM Stop: 11:24 AM Medication: Heparin Amount: 5000 units Route: I.V. I, the attending physician, have reviewed and verified all procedure medications. Yes, all medications given per verbal order History/Risk Factors Hypertension: Yes Dyslipidemia: Yes Peripheral Arterial Disease (PAD): Yes Myocardial Infarction ([place]): No Obesity: No Renal Disease: No Prior Interventions PCI: No CABG: No Valve Surgery: No Report Signatures Finalized by Oleg Perez MD on 10/22/2025 11:48 AM
--- NOTE | 2025-10-22 11:07 | PC.NURSE ---
Patient taken to cath lab radiological technologist at this time
--- NOTE | 2025-10-22 11:15 | W.PM.OPSUD ---
Surgery/Procedure H&P Update DATE OF PROCEDURE: October 22, 2025 DATE H&P PERFORMED: 10/18/25 H&P UPDATE INFORMATION: I have reviewed H&P completed within last 30 days, I have examined patient prior to procedure and No changes to prior documentation CHANGES TO PREVIOUS DOCUMENTATION: New onset of heart failure Severe LV dysfunction PREOP DIAGNOSIS: Severe LV dysfunction/new onset of heart failure/non-STEMI PRIMARY INDICATION FOR PROCEDURE: As above PLANNED PROCEDURE: Operation Date: 10/22/25 10:00 Proposed Procedures p Cardiac Catheterization(Not Applicable) - Oleg Perez MD PATIENT REASSESSED PRIOR TO SEDATION, WITH NO CHANGE NOTED: Yes PHYSICAL EXAM: alert, oriented x 3, clear to auscultation bilaterally, regular rate & rhythm and operative site marked AIRWAY EVAL/ANESTHESIA PLAN: ASA II and Patient agrees to continue as planned ADDITIONAL INFORMATION: All risk-benefit and alternative for the procedure has been explained to the patient. Patient understand 2% risk for stroke major bleed. Patient restand 5% risk for mild bleeding bruising infection hematoma contrast-induced nephropathy urgent emergent vascular or bypass surgery. Patient agrees to it and would like to proceed with it.
--- NOTE | 2025-10-22 11:49 | PC.NURSE ---
patient received from dental lab technician via bed s/p [facility] with right radial access and tr band in place. no s/s of bleeding or hematoma formation observed. Instructed patient on site care with restrictions. patient verbalized understanding but will require reinforcement due to sedation. patient denies pain or needs. No distress observed. Spouse at bedside.
--- NOTE | 2025-10-22 14:05 | PC.NURSE ---
Initiated TR band removal at 1245 removing 2ml of air every 15-20min until all air removed. Band off at 1400. No s/s of bleeding or hematoma formation observed. Instruction patient on site care with restriction. patient and spouse verbalized complete understanding.
[2025-10-22] MEDS: pantoprazole 40 mg SDV IVP (17:15)
[2025-10-22] MEDS: cefTRIAXone 1,000 mg SDV 1000 MG IVP (17:16)
[2025-10-22] MEDS: MELATONIN 3 MG TABLET PO (21:48)
[2025-10-23] VITALS (14 sets, daily range): BP systolic 96–120; BP diastolic 61–72; PULSE 69–83; RESP 6–22; TEMP 36.5–36.7; O2SAT 92–97
[2025-10-23 04:24] LABS: Hematocrit 45.6 % (37-53); Hemoglobin 14.60 g/dL (11.27-16.99); Mean Corpuscular HGB Conc 32.0 g/dL (30-55); Mean Corpuscular Hemoglobin 27.8 pg (27-33); Mean Corpuscular Volume 86.9 fl (82-101); Nucleated Red Blood Cells % 0 %; Platelet Count 321 10^3/cmm (157-399); Red Blood Count 5.25 10^6/uL (3.85-5.65); White Blood Count 16.24 10^3/uL (3.29-11.43)
[2025-10-23 04:39] LABS: Anion Gap 12.8 (5-19); Blood Urea Nitrogen 31 mg/dL (8-23); Calcium 9.1 mg/dL (8.5-10.5); Carbon Dioxide 33 mmol/L (22-29); Chloride 94 mmol/L (98-107); Glucose 142 mg/dL (65-115); Osmolality Calculated 291 mOsm/kg (285-295); Potassium 3.8 mmol/L (3.5-5.1); Sodium 136 mmol/L (136-145)
[2025-10-23] MEDS: ATORVASTATIN 20 MG TABLET PO (05:15)
[2025-10-23] MEDS: FUROsemide 10 mg/mL SDV 4mL 40 MG IVP (08:48)
--- NOTE | 2025-10-23 09:26 | PC.SOCIAL ---
IMM Update pg 2 of IMM Updated and reviewed w/ patient and his . Copy provided and copy dated, initialed and placed in chart.
--- NOTE | 2025-10-23 15:19 | P.PN_ITS ---
<Statement entered by Oleg Perez MD - 10/23/25 18:56> Patient was evaluated and cared for in conjunction with an advanced practice practitioner. I personally have not examined the patient but reviewed the chart and all pertinent data including imaging, telemetry, and laboratory results. I discussed the patient in detail with the advanced practice practitioner. Please see their note for complete H&P testing result and agreed upon plan of care for the patient. Subjective 2 Subjective: Patient doing well today. He has gotten his LifeVest. He is not requiring any oxygen on my exam. Tolerated Entresto well last night. Vitals/I&O/Wt Last Vital Signs Temp 97.7 F 10/23/25 08:00 Pulse 83 10/23/25 12:00 Resp 20 H 10/23/25 12:00 BP 96/63 10/23/25 12:00 Pulse Ox 95 10/23/25 12:00 O2 Del Method Oxymask 10/23/25 11:23 O2 Flow Rate 4 10/23/25 11:23 FiO2 45 10/22/25 01:40 10/23/25 10/23/25 10/23/25 06:59 14:59 22:59 Intake Total 240 / 1090 840 / 840 Output Total 1550 / 4350 550 / 550 Balance -1310 / -3260 840 / 840 -550 / 290 Weight last 48 hrs Weight 228 lb 2.855 oz Weight 232 lb 2.348 oz Physical Exam 2 Narrative: General: No apparent distress, HENMT: normoceophalic Neck: No carotid bruit bilaterally Respiratory: Normal respiratory effort, bilateral lower lobes crackles present, no use of accessory muscles Cardio: No JVD, regular rate, regular rhythm, S1 S2 normal, no murmurs, peripheral pulses 2+ radial palpated bilaterally GI: Normal to inspection, nondistended Extremities: Full ROM, normal, normal capillary refill, no cyanosis, trace edema bilateral lower extremities Neuro: Alert and oriented x4, no focal motor deficits Psych: Affect normal, denies suicidal ideation, mental status grossly normal Skin: No rashes or lesions noted, no wounds Urinary Catheter Management: Hanley Latex Free: Cath Placed During This Visit: yes Reason for Continuing Indwelling Catheter: Acute Urinary Retention or Obstruction Urinary Catheter Date of Insertion: 10/18/25 Urinary Catheter Time of Insertion: 16:10 Data 10/23/25 04:04 10/23/25 04:04 Micro: Microbiology 10/19/25 08:52 Gram Stain - Final Sputum - Expectorated Sputum Sputum Culture - Preliminary Coag positive Staphylococcus A&P Assessment and plan 1. Acute respiratory failure with hypoxia: 2. Non-ST elevation MO (NSTEMI): 3. Pulmonary edema: 4. Dyslipidemia: 5. Acute CHF: 6. Tachycardia: Plan: Patient is doing well today with no complaints. Appears euvolemic. He has gotten his LifeVest. Patient is stable to discharge from cardiology perspective. Would recommend continuing atorvastatin, converting Lasix to p.o. 40 mg daily, amiodarone 200 twice daily x 1 week then 200 mg daily, continue metoprolol 25 twice daily, continue Entresto at low dose twice daily. Follow-up in the clinic in 1 week. PDMP PDMP Reviewed: Not Reviewed Attestations 2 Medical Necessity Statement*: May be discharged from cardiology perspective Coding Level of Care Code Acute Code for [facility] Diagnoses Acute respiratory failure with hypoxia J96.01 Non-ST elevation MO (NSTEMI) I21.4 Pulmonary edema J81.1 Dyslipidemia E78.5 Acute CHF I50.9 Tachycardia R00.0
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
--- NOTE | 2025-10-23 16:22 | PC.NURSE ---
Patient discharged to home. Instruction provided regarding follow up appointments, new medications and site care with restrictions. Patient and spouse verbalized complete understanding. Right wrist remains c,d,i without s/s of bleeding or hematoma formation observed. New medications transmitted to [facility]. Patient taken by wheelchair to private vehicle with spouse by side. Patient denies pain or needs. No distress observed.
== END 2025-10-23 16:27 | disposition home or self-care (01) | DRG 280 ==
LOC: ER 15:16 → CSU 15:41
PROVIDERS: Family Medicine; Internal Medicine Cardiovascular Disease; Nurse Practitioner Family; Admitting Provider Internal Medicine; Emergency Provider Emergency Medicine; PCP Family Medicine; Visit Provider Internal Medicine
PROC: B2101ZZ Fluoroscopy of Single Coronary Artery using Low Osmolar Contrast (ICD-10-PCS; principal; 2025-10-22 10:00)
DX: I11.0 Hypertensive heart disease with heart failure (principal); I50.21 Acute systolic (congestive) heart failure; I21.4 Non-ST elevation (NSTEMI) myocardial infarction; J18.9 Pneumonia, unspecified organism; J96.01 Acute respiratory failure with hypoxia; J44.0 Chronic obstructive pulmonary disease with (acute) lower respiratory infection; I16.1 Hypertensive emergency; E78.5 Hyperlipidemia, unspecified; F17.210 Nicotine dependence, cigarettes, uncomplicated; I73.9 Peripheral vascular disease, unspecified; I48.91 Unspecified atrial fibrillation; Z79.82 Long term (current) use of aspirin
CPT/HCPCS: 36415; 36416; 36600; 51702; 71045; 80048; 80051; 80053; 80061; 81001; 82330; 82805; 82962; 83036; 83605; 83735; 83880; 84100; 84145; 84443; 84484; 85025; 85610; 85730; 86140; 87040; 87070; 87077; 87186; 87205; 87637; 93005; 93306; 93458; 93925; 94640; 94660; 94664; 94760; 96372; 96374; 96375; 99152; 99153; 99291; C1769; C1887; C1894; J0282; J0456; J0696; J1160; J1644; J1650; J1815; J1938; J2250; J2470; J2919; J3010; J3490; J7030; J7050; J7512; J7613; J7626; J7644; J9999; Q0163; Q9967

== ENCOUNTER 2025-10-28 06:08 | Inpatient (IN) | payer MEDICARE, MEDICAID, SELFPAY ==
[2025-10-28] VITALS (20 sets, daily range): BP systolic 100–125; BP diastolic 56–89; PULSE 70–78; RESP 16–26; TEMP 36.4–36.9; O2SAT 92–100; BMI 32.8
--- NOTE | 2025-10-28 06:12 | XRR_ITS ---
PROCEDURE INFORMATION: Exam: XR Chest Exam date and time: 10/28/2025 6:13 AM Age: 65 years old Clinical indication: Pain; Angina pectoris; Additional info: Cp TECHNIQUE: Imaging protocol: Radiologic exam of the chest. Views: 1 view. COMPARISON: CR (CHEST, ) 10/20/2025 10:37 AM FINDINGS: Lungs: Moderate chronic interstitial prominence. Mild cardiac decompensation may present. Pleural spaces: Unremarkable. No pleural effusion. No pneumothorax. Heart/Mediastinum: See Vasculature finding. Vasculature: Moderate cardiomegaly and uncoiling of the thoracic aorta is accentuated by the AP positioning. Bones/joints: Unremarkable. XR/XR chest 1V portable [id number] IMPRESSION: Chronic changes. Possible mild cardiac decompensation.
--- NOTE | 2025-10-28 06:12 | ECG_ITS ---
[facility]: 2025-10[facility]28 Pat Name: Aniket Linder Department: Room: Gender: Male Practice Billing Associate: : [id number] Requested By: Ben Kearney Order Number: [id number] Mcgowan MD: Wang Shields M.D. Measurements Intervals [place] Rate: 79 P: 48 SC: 230 QRS: -80 QRSD: 158 T: 60 QT: 472 QTc: 544 Interpretive Statements SINUS RHYTHM WITH FIRST DEGREE AV BLOCK POSSIBLE LEFT ATRIAL ENLARGEMENT [-0.1mV P-WAVE IN V1/V2] RIGHT BUNDLE BRANCH BLOCK [120+ ms QRS DURATION, UPRIGHT V1, 40+ ms S IN I/aVL/V4/V5/V6] LEFT ANTERIOR FASCICULAR BLOCK [QRS AXIS <= -45, QR IN I, RS IN II] Compared to ECG 10/21/2025 18:02:01 First degree AV block now present Electronically Signed On 10-30-2025 22:26:14 DRUM HANDLER by Wang Shields M.D. [email or web address]
--- OUTSIDE RECORDS SUMMARY | 2025-10-28 06:13 | XMS_ITS | Clinical Summary ---
Author Organization [employer] Address [address] 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
--- OUTSIDE RECORDS SUMMARY | 2025-10-28 06:13 | XMS_ITS | Encounter Summary ---
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
--- OUTSIDE RECORDS SUMMARY | 2025-10-28 06:13 | XMS_ITS | Encounter Summary ---
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
--- OUTSIDE RECORDS SUMMARY | 2025-10-28 06:14 | XMS_ITS | Encounter Summary ---
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
--- OUTSIDE RECORDS SUMMARY | 2025-10-28 06:14 | XMS_ITS | Encounter Summary ---
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
--- OUTSIDE RECORDS SUMMARY | 2025-10-28 06:14 | XMS_ITS | Encounter Summary ---
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
--- OUTSIDE RECORDS SUMMARY | 2025-10-28 06:14 | XMS_ITS | Encounter Summary ---
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
--- OUTSIDE RECORDS SUMMARY | 2025-10-28 06:14 | XMS_ITS | Encounter Summary ---
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
--- NOTE | 2025-10-28 06:29 | ED_ITS ---
HPI - Chest Pain 2 General: Chief Complaint: Chest Pain Stated Complaint: trouble breathing, chest pressure Time Seen by Provider: 10/28/25 06:12 Source: patient Mode of arrival: ambulatory Limitations: no limitations History of Present Illness: 65-year-old male has a history of COPD a long with CHF states that he has been having shortness of breath since last night. He states that he has had some chest pain he states from being short of breath. States pain is a pressure type pain. Pain is currently a 2 out of 10 patient was recently discharged from the hospital a few days ago. Associated symptoms: Reports dyspnea Related Data Previous Rx's ?Medication ?Instructions ?Recorded atorvastatin 20 mg tablet 20 mg PO DAILY #90 tabs 01/15 amiodarone 200 mg tablet (Pacerone) 200 mg PO BID #60 tabs 10/23/25 furosemide 40 mg tablet (Lasix) 40 mg PO DAILY #30 tab s 10/23/25 metoprolol tartrate 25 mg tablet 25 mg PO BID@0900,210 0 #60 tabs 10/23/25 potassium chloride 20 mEq 20 meq PO DAILY #60 tabs 02/12 tablet,extended release (K-Tab) sacubitril 24 mg-valsartan 26 mg 1 tab PO BID #60 tabs 10/23/25 tablet (Entresto) Allergies Allergy/AdvReac Type Severity Reaction Status Date / Time No Known Allergies Allergy Unverified 09/19/25 09:17 Review of Systems 2 Card: Reports: chest pain Resp: Reports: dyspnea PFSH ED 2 PFSH: Medical History No pertinent past medical history Leg fracture, right Surgical History H/O knee surgery Left H/O pelvic surgery Family History Father Heart disease Mother Dementia Social History Smoking and tobacco/nicotine status: current every day tobacco/nicotine user Quit status (tobacco/nicotine): considering quitting Alcohol intake: former Substance/Drug Use: never Physical Exam 2 Const: COMMON NORMALS: patient oriented x3 GENERAL APPEARANCE: in distress HENMT: COMMON NORMALS: normocephalic and atraumatic HEAD & SCALP: n ormocephalic and atraumatic Eye: COMMON NORMALS: Equal, round and reactive pupils present and EOMs intact bilaterally PUPIL: Yes Equal, round and reactive pupils present Neck/C-Spine: COMMON NORMALS: full ROM and supple Chest: COMMONS NORMALS: normal inspection of the chest Resp: COMMON NORMALS: No retractions and No use of accessory muscles EFFORT & INSPECTION: Yes labored Cardio: COMMON NORMALS: regular rate, regular rhythm and No murmurs present (Cardio) RATE: regular rate RHYTHM: regular rhythm GI: COMMON NORMALS: Normal to inspection, nondistended, normoactive bowel sounds present, Soft to palpation, non-tender and no masses PALPATION: Yes Soft to palpation Extremity: COMMON NORMALS: normal to inspection and full ROM Neuro: COMMON NORMALS: patient oriented x3, moves all extremities and no focal motor deficits Psych: COMMON NORMALS: mental status grossly normal, Normal thought process present and cooperative THOUGHT PROCESS: Normal thought process present Skin: COMMON NORMALS: no rashes or lesions noted and no wounds GENERAL SKIN EXAM: no rashes or lesions noted Course 2 Vital Signs: Vital signs: Vital Signs Temperature 97.5 F L 10/28/25 06:10 Pulse Rate 73 10/28/25 06:44 Respiratory Rate 23 H 10/28/25 06:44 Blood Pressure 109/73 10/28/25 06:44 Pulse Oximetry 97 10/28/25 06:44 Oxygen Delivery Me thod Nasal Cannula 10/28/25 06:43 Oxygen Flow Rate 2 10/28/25 06:43 MDM - Chest Pain Medical Decision Making Patient presents here with shortness of breath along with chest pain differential includes pneumonia, pulm emboli, ACS, CHF exacerbation. Initial troponin is at his baseline and EKG showed no signs of STEMI ACS unlikely. He has no signs of pulmonary emboli or pneumonia. This is likely CHF exacerbation he is requiring 2 L oxygen here is not typically on oxygen did give him a breathing treatment along with IV Lasix. Checks x-ray was interpreted by me showed no significant change from previous I did speak to hospitalist Dr. MARANDA VELAZQUEZ and will admit to cardiac stepdown EKG interpreted by me at 06 13 normal sinus rhythm heart rate [address] elevation QRS 158 QTc 507 Medical Records I reviewed the patient's medical records. Lab Data I reviewed the patient's lab results. 10/28/25 06:25 10/28/25 06:25 Radiology Impressions Chest X-Ray 10/28/25 06:12 IMPRESSION: Chronic changes. Possible mild cardiac decompensation. Laboratory Results WBC 16.38 10^3/uL (3.29-11.43) H 10/28/25 06:25 RBC 6.08 10^6/uL (3.85-5.65) H 10/28/25 06:25 Hgb 17.10 g/dL (11.27-16.99) H 10/28/25 06:25 Hct 53.4 % (37-53) H 10/28/25 06:25 MCV 87.8 fl (82-101) 10/28/25 06:25 MCH 28.1 pg (27-33) 10/28/25 06:25 MCHC 32.0 g/dL (30-55) 10/28/25 06:25 RDW 13.8 % (12.1-15.1) 10/28/25 06:25 Plt Count 321 10^3/cmm (157-399) 10/28/25 06:25 MPV 11.1 fL (7.4-10.4) H 10/28/25 06:25 Neut % (Auto) 62.3 % 10/28/25 06:25 Lymph % (Auto) 25.5 % 10/28/25 06:25 Whitley % (Auto) 7.7 % 10/28/25 06:25 Eos % (Auto) 1.6 % 10/28/25 06:25 Baso % (Auto) 0.9 % 10/28/25 06:25 Neut # (Auto) 10.21 10^3/uL (1.8-7.7) H 10/28/25 06:25 Lymph # (Auto) 4.2 10^3/uL (0.8-4.8) 10/28/25 06:25 Whitley # (Auto) 1.3 10^3/uL (0.2-0.9) H 10/28/25 06:25 Eos # (Auto) 0.3 10^3/uL (0.0-0.8) 10/28/25 06:25 Baso # (Auto) 0.1 10^3/uL (0.0-0.1) 10/28/25 06:25 Nucleated RBC % (auto) 0 % 10/28/25 06:25 Nucleated RBCs # 0.0 /100WBC 10/28/25 06:25 Sodium 139 mmol/L (136-145) 10/28/25 06:25 Potassium 4.6 mmol/L (3.5-5.1) 10/28/25 06:25 Chloride 101 mmol/L (98-107) 10/28/25 06:25 Carbon Dioxide 25 mmol/L (22-29) 10/28/25 06:25 Anion Gap 17.6 (5-19) 10/28/25 06:25 BUN 28 mg/dL (8-23) H 10/28/25 06:25 Creatinine 1.4 mg/dL (0.7-1.2) H 10/28/25 06:25 GFR Calculation 50.9 mL/min (90-130) L 10/28/25 06:25 Glucose 186 mg/dL (65-115) H 10/28/25 06:25 Calculated Osmolality 298 mOsm/kg (285-295) H 10/28/25 06:25 Calcium 9.4 mg/dL (8.5-10.5) 10/28/25 06:25 Total Bilirubin 0.5 mg/dL (0.15-1.2) 10/28/25 06:25 AST 51 U/L (0-40) H 10/28/25 06:25 ALT 59 U/L (0-41) H 10/28/25 06:25 Alkaline Phosphatase 128 U/L (40-130) 10/28/25 06:25 Troponin T Baseline 34 ng/L (0-15) H 10/28/25 06:25 NT-Pro-B Natriuret Pep 2354 pg/mL (0-125) H 10/28/25 06:25 Total Protein 7.6 g/dL (6.6-8.7) 10/28/25 06:25 Albumin 4.3 g/dL (3.5-5.2) 10/28/25 06:25 Globulin 3.3 g/dL (1.3-4.6) 10/28/25 06:25 All radiology interpretation(s) finalized by discharge Discharge Plan Discharge Condition: Stable Prescriptions: No Action atorvastatin 20 mg tablet 20 mg PO DAILY Qty: 90 1RF Rx Instructions: once daily at bedtime sacubitril-valsartan [Entresto] 24-26 mg Tablet 1 tab PO BID Qty: 60 3RF furosemide [Lasix] 40 mg tablet 40 mg PO DAILY Qty: 30 0RF potassium chloride [K-Tab] 20 mEq tablet extended release 20 meq PO DAILY Qty: 60 0RF amiodarone [Pacerone] 200 mg Tablet 200 mg PO BID Qty: 60 0RF Rx Instructions: 200 mg BID x1 week, then 200 mg daily thereafter metoprolol tartrate 25 mg Tablet 25 mg PO BID@0900,2100 Qty: 60 1RF Referrals: Allyson Dempsey DO [Primary Care Provider, Family Practice] Print Language: Romansh Coding Level of Care Code ED Marine Cargo Specialist for Chg Fwd Heart Score HEART Score Components History: Slightly Suspicous EKG: Non-specific Changes Age: 65 or more yrs Risk Factors: 1 or 2 Risk Factors Troponin: Baseline Trop 16-45 ng/L HEART Score RESULT HEART Score: 5
[2025-10-28 06:33] LABS: Hematocrit 53.4 % (37-53); Hemoglobin 17.10 g/dL (11.27-16.99); Mean Corpuscular HGB Conc 32.0 g/dL (30-55); Mean Corpuscular Hemoglobin 28.1 pg (27-33); Mean Corpuscular Volume 87.8 fl (82-101); Nucleated Red Blood Cells % 0 %; Platelet Count 321 10^3/cmm (157-399); Red Blood Count 6.08 10^6/uL (3.85-5.65); White Blood Count 16.38 10^3/uL (3.29-11.43)
[2025-10-28] MEDS: FUROsemide 10 mg/mL SDV 4mL 40 MG IVP (06:41)
[2025-10-28 06:53] LABS: Troponin(5th) Baseline 34 ng/L (0-15)
[2025-10-28 07:03] LABS: Alanine Aminotransferase 59 U/L (0-41); Albumin Level 4.3 g/dL (3.5-5.2); Alkaline Phosphatase 128 U/L (40-130); Aspartate Amino Transferase 51 U/L (0-40); Blood Urea Nitrogen 28 mg/dL (8-23); Calcium 9.4 mg/dL (8.5-10.5); Carbon Dioxide 25 mmol/L (22-29); Chloride 101 mmol/L (98-107); Globulin 3.3 g/dL (1.3-4.6); Glucose 186 mg/dL (65-115); NT Pro B Type Natriuretic Pept 2354 pg/mL (0-125); Osmolality Calculated 298 mOsm/kg (285-295); Sodium 139 mmol/L (136-145); Total Protein 7.6 g/dL (6.6-8.7)
[2025-10-28 07:07] LABS: Anion Gap 17.6 (5-19); Potassium 4.6 mmol/L (3.5-5.1)
--- NOTE | 2025-10-28 08:23 | PM.HP ---
Providers/Chief Complaint Admitting Physician: Eben Hua MD Primary Care Provider: Allyson Dempsey DO Chief Complaint: trouble breathing, chest pressure History of Present Illness Aniket Linder is a 65 year old male with PMHx of HTN, AFIB, HFrEF, dyslipidemia, PAD, DM 2T, COPD Patient presented to the ED on 10/28/25 out of concern for shortness of breath. Patient presents with acute onset of shortness of breath and chest discomfort that started overnight while trying to go to sleep. Patient reports experiencing a hot flash followed by difficulty breathing that came on suddenly. Denies any preceding exertion. Characterizes discomfort as sharp that primarily occurs with coughing and deep breathing. Chest discomfort is not present at rest. Denies pressure-like sensation. Chest discomfort does not radiate to the back, extremities, neck or jaw. During the episode reported feeling lightheaded. He did not experience a syncopal event. Notes shortness of breath to be worse when laying down, but not with exertion. Episode preceding ER presentation lasted several hours prior to seeking further evaluation. Patient reports to have obtained relief after receiving a breathing treatment. Denies fever, chills, palpitations, wheezing, abdominal pain/distention, nausea and vomiting. Denies increased swelling of lower extremities. Notes weight to have been stable at home at 220 pounds over the past week. Recently hospitalized 10/18/25 - 10/23/25 for decompensated HF. Outpatient GDMT regimen consists of furosemide, metoprolol tartrate and sacubitril?valsartan. Per record, he has history of atrial fibrillation. Currently not on aspirin or any other anticoagulation. Denies prior history of thrombosis. Patient states that he was recently placed on a 3-week LifeVest. Patient was not wearing a LifeVest at time of this evaluation. His history is remarkable for [place], however patient denies it and does not use CPAP. Also known to have COPD, however denies use of bronchodilators. Denies oxygen use at baseline. Reports 40-year history of tobacco dependence, most recently smoking half pack per day, states he quit 1 week ago. Denies alcohol, marijuana and recreational drug use. for GDMT last admission started on entresto ED course / work-up reviewed Presenting VS: T 97.5F BP 115/75 HR 74 RR 24 SpO2 99% on room air Afebrile, BP and HR stable Tachypneic throughout ED stay, SpO2 stable without need for supplemental O2 EKG, 10/28/2025 0613, SR w/ 1AVB, R-BBB, LAFB, QTc 544 Labs, 10/28/2025 0625 Hemogram WBC 16.38 RBC 6.08 PLT 321 HGB 17.10 HCT 53.4 Chemistry Na 139 K 4.6 Cl 101 Ca 9.4 Glu 186 CO2 25 AG 17.6 BUN 28 Cr 1.4 eGFR 50.9 AST 51 ALT 59 ALP 128 T.Bili 0.5 T.Protein 7.6 Alb 4.3 Cardiac Trop 34 NT-proBNP 2354 CXR: moderate chronic interstitial prominence. Possible mild cardiac decompensation. No pleural effusion. No pneumothorax. Moderate cardiomegaly and uncoiling of the thoracic aorta is accentuated by the AP positioning. In ED received 40 mg IV furosemide and a duoneb tx. Review of Systems General: Reports: 10 or more systems reviewed and unremarkable except in HPI and below Medications/Allergies Home Medications ?Medication ?Instructions ?Recorded ?Confirmed ?Last Taken ?Type atorvastatin 20 mg tablet 20 mg PO DAILY #90 tabs 08/22/25 10/28/25 10/27/25 Rx amiodarone 200 mg tablet (Pacerone) 200 mg PO BID #60 tabs 10/23/25 10/28/25 10/27/25 Rx furosemide 40 mg tablet (Lasix) 40 mg PO DAILY #30 tabs 10/23/25 10/28/25 10/28/25 Rx metoprolol tartrate 25 mg tablet 25 mg PO BID@0900,2100 #60 tabs 10/23/25 10/28/25 10/27/25 Rx sacubitril 24 mg-valsartan 26 mg 1 tab PO BID #60 tabs 10/23/25 10/28/25 10/27/25 Rx tablet (Entresto) potassium chloride 20 mEq 20 meq PO DAILY 10/28/25 10/28/25 10/27/25 History tablet,extended release Allergies Allergy/AdvReac Type Severity Reaction Status Date / Time No Known Allergies Allergy Unverified 09/19/25 09:17 PFSH Acute PFSH: Medical History No pertinent past medical history Leg fracture, right Surgical History H/O knee surgery Left H/O pelvic surgery Family History Father Heart disease Mother Dementia Social History Smoking and tobacco/nicotine status: current every day tobacco/nicotine user Quit status (tobacco/nicotine): considering quitting Alcohol intake: former Substance/Drug Use: never Vitals/I&O/Wt Last Vital Signs Temp 97.5 F L 10/28/25 06:10 Pulse 71 10/28/25 08:07 Resp 24 H 10/28/25 08:06 BP 121/76 10/28/25 08:07 Pulse Ox 95 10/28/25 08:07 O2 Del Method Nasal Cannula 10/28/25 06:43 O2 Flow Rate 2 10/28/25 06:43 Weight last 48 hrs Weight 103.963 kg Physical Exam Narrative: Constitutional: NAD Neurorogic: Awake and alert. Oriented x3. No facial asymmetry, unilateral weakness or speech deficits. Head NC/AT Eyes PERRLA. EOMI. Sclera anicteric. ENT Normal external ears. Mildly heard of hearing Normal external nose. No epistaxis. MMM. Respiratory Diminished bases, clear upper lobes. No accessory muscle use. On 1.5L of oxygen. Able to speak in full sentences. No accessory muscle use. Heart / CV Regular. No murmur. Extremities BLE edema, trace Abdomen / GI Soft. NT. ND. +BS Genitourinary Hanley catheter present Musculoskeletal Skin: fatty mass posterior torso, tender to touch no apparent drainage Data 10/28/25 06:25 10/28/25 06:25 Other Labs: I have personally reviewed below listed labs that were done in ED on presentation. EKG, 10/28/2025 0613, SR w/ 1AVB, R-BBB, LAFB, QTc 544 Labs, 10/28/2025 0625 Hemogram WBC 16.38 RBC 6.08 PLT 321 HGB 17.10 HCT 53.4 Chemistry Na 139 K 4.6 Cl 101 Ca 9.4 Glu 186 CO2 25 AG 17.6 BUN 28 Cr 1.4 eGFR 50.9 AST 51 ALT 59 ALP 128 T.Bili 0.5 T.Protein 7.6 Alb 4.3 Cardiac Trop 34 NT-proBNP 2354 Micro: N/A CXR: Radiologist's impression: Exam: XR Chest (1 view) Exam date and time: 10/28/2025 6:13 AM Age: 65 years old Clinical indication: Pain; Angina pectoris; Additional info: Cp Comparison: CR (CHEST, ) 10/20/2025 10:37 AM Findings Lungs: Moderate chronic interstitial prominence. Mild cardiac decompensation may present. Pleural spaces: Unremarkable. No pleural effusion. No pneumothorax. Heart/Mediastinum: See Vasculature finding. Vasculature: Moderate cardiomegaly and uncoiling of the thoracic aorta is accentuated by the AP positioning. Bones/joints: Unremarkable. Impression Chronic changes. Possible mild cardiac decompensation. EKG 1: My Interpretation: EKG, 10/28/2025 0613 SR w/ 1AVB, R-BBB, LAFB, QTc 544 A&P Assessment and plan 1. Atypical chest pain: 2. HFrEF (heart failure with reduced ejection fraction): 3. PAF (paroxysmal atrial fibrillation): 4. THOMAS (acute kidney injury): Plan: # Atypical chest pain # elevated troponin Chest discomfort of pleural nature Mild troponin elevation 34 -> 26.97 EKG non-ischemic CXR showing moderate chronic interstitial prominence. Mild cardiac decompensation may be present. - obtain PCT, D-Dimer # HFrEF 10/20/2025 Echo: LVEF 31%. Severely increased LV cavity size. Severely decreased LV systolic function w/ severe hypokinesis of most of the macias except for the septum. No significant valvular abnormalities. 10/22/2025 LHC: No disease noted in the Left Main, Left Anterior Descending, Right, or Circumflex coronary arteries. Severe left ventricular systolic dysfunction. Ejection fraction of 20%. 10/28/2025 CXR: Moderate chronic interstitial prominence. Possible mild cardiac decompensation. 10/28/2025: Trop 34 NT-proBNP 2354 Received 40 mg IV furosemide in ED. Amount diuresed not available. 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 Last at baseline 10/19/25 Presenting Cr 1.4 - holding diuresis and BP meds today - recheck lab in am # erythrocytosis (secondary ?) RBC 6.08 HGB 17.1 HCT 53.4 suspect secondary erythrocytosis, possibly from hypoxia or smoking available records do not account for prior myeloproliferative work-up - Trend CBC May need to consider peripheral smear, Epo level, JAK2 # Leukocytosis WBC 16.38 (chronic elevation ?) # Transaminitis - mild, trend # COPD Not oxygen dependent at baseline. States he does not use bronchodilators at home. Hx of tobacco dependence ~40 years, quit smoking 1 week ago - Does not appear to be in an acute exacerbation - Currently on 2L O2. Not clear why he is on oxygen, record does not reflect hypoxia since admission. Will trial him off oxygen. - DuoNebs Q6H scheduled # DM 2T w/ hyperglycemia Most recent A1c 6.8% (10/18/2025). Controlled. COMPUTER HARDWARE DESIGNER not on oral anti-glycemic meds or insulin. - Glucose checks AC/HS - SSI level 1 - Hypoglycemia protocol # Dyslipidemia Controlled Most recent lipid panel (10/18/2025): Chol 118, HDL 36 LDL 66 Trig 82 - COMPUTER HARDWARE DESIGNER on atorvastatin 20 mg daily, continue # Elevated QTc # Urinary retention Per record has urinary retention. Hanley catheter was inserted on 10/10/2025. VTE PPx: SCDs, lovenox PDMP PDMP Reviewed: Not Reviewed Attestations Medical Necessity Statement*: Admitted under inpatient status. Given complexity of patient's presentation, co-morbid conditions, and required intensity of treatment, a hospitalization exceeding two midnights is anticipated. Coding Level of Care Code 14961 Diagnoses Atypical chest pain R07.89 HFrEF (heart failure with reduced ejection fraction) I50.20 PAF (paroxysmal atrial fibrillation) I48.0 THOMAS (acute kidney injury) N17.9
--- NOTE | 2025-10-28 08:40 | ECG_ITS ---
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 Measurements Intervals [place] Rate: 72 P: 30 WA: 260 QRS: -67 QRSD: 156 T: 59 QT: 491 QTc: 540 Interpretive Statements SINUS RHYTHM WITH FIRST DEGREE AV BLOCK POSSIBLE LEFT ATRIAL ENLARGEMENT [-0.1mV P-WAVE IN V1/V2] RIGHT BUNDLE BRANCH BLOCK [120+ ms QRS DURATION, UPRIGHT V1, 40+ ms S IN I/aVL/V4/V5/V6] LEFT ANTERIOR FASCICULAR BLOCK [QRS AXIS <= -45, QR IN I, RS IN II] Compared to ECG 10/28/2025 06:13:04 No significant changes Electronically Signed On 10-31-2025 18:20:09 WATCH [facility]ONER by Mode Escalera M.D. [email or web address]
[2025-10-28 10:11] LABS: Magnesium 2.4 mg/dL (1.7-2.3)
[2025-10-28 10:18] LABS: Procalcitonin 0.07 ng/mL (0-0.5)
--- NOTE | 2025-10-28 10:38 | PC.NURSE ---
Turn off o2 at this time per DAJUAN Byrne. Assessing for hypoxia. Currently SpO2 at 97%. Patient is in right lateral position and resting. Noted patient to have some apnea while sleeping. Informed DAJUAN Byrne.
--- NOTE | 2025-10-28 12:12 | ECG_ITS ---
[employer] Test Date: 2025-10-28 Pat Name: Aniket Linder Department: Room: 103 Gender: Male [employer] Supervisor: : 1960 Requested By: Ben Kearney Order Number: [id number] Juan M MD: Mode Escalera M.D. Measurements Intervals [place] Rate: 73 P: 41 AK: 250 QRS: -75 QRSD: 156 T: 59 QT: 472 QTc: 522 Interpretive Statements SINUS RHYTHM WITH FIRST DEGREE AV BLOCK POSSIBLE LEFT ATRIAL ENLARGEMENT [-0.1mV P-WAVE IN V1/V2] LEFT AXIS DEVIATION [QRS AXIS < -30] RIGHT BUNDLE BRANCH BLOCK [120+ ms QRS DURATION, UPRIGHT V1, 40+ ms S IN I/aVL/V4/V5/V6] POSSIBLE SEPTAL MYOCARDIAL INFARCTION , OF INDETERMINATE AGE [30 ms Q WAVE IN V1/V2] Compared to ECG 10/28/2025 08:40:35 Left-axis deviation now present Myocardial infarct finding now present Left anterior fascicular block no longer present Electronically Signed On 10-31-2025 18:18:23 [facility] PATHOLOG[facility] by Mode Escalera M.D. [email or web address]
[2025-10-28 12:54] LABS: Troponin 5 6HR 27.14 ng/L (0-15)
[2025-10-28 12:55] LABS: Troponin 5 6HR Delta -6.86 ng/L (0-12)
[2025-10-28] MEDS: ATORVASTATIN 20 MG TABLET PO (21:10)
[2025-10-29] VITALS (12 sets, daily range): BP systolic 96–134; BP diastolic 56–86; PULSE 71–85; RESP 16–31; TEMP 36.6–36.9; O2SAT 93–98; BMI 33.0
[2025-10-29 07:03] LABS: Hematocrit 47.5 % (37-53); Hemoglobin 15.10 g/dL (11.27-16.99); Mean Corpuscular HGB Conc 31.8 g/dL (30-55); Mean Corpuscular Hemoglobin 28.6 pg (27-33); Mean Corpuscular Volume 90.0 fl (82-101); Nucleated Red Blood Cells % 0 %; Platelet Count 277 10^3/cmm (157-399); Red Blood Count 5.28 10^6/uL (3.85-5.65); White Blood Count 14.62 10^3/uL (3.29-11.43)
[2025-10-29 07:16] LABS: Alanine Aminotransferase 44 U/L (0-41); Albumin Level 3.5 g/dL (3.5-5.2); Alkaline Phosphatase 107 U/L (40-130); Anion Gap 16.0 (5-19); Aspartate Amino Transferase 26 U/L (0-40); Blood Urea Nitrogen 26 mg/dL (8-23); Calcium 8.6 mg/dL (8.5-10.5); Carbon Dioxide 25 mmol/L (22-29); Chloride 99 mmol/L (98-107); Globulin 2.9 g/dL (1.3-4.6); Glucose 157 mg/dL (65-115); Magnesium 2.1 mg/dL (1.7-2.3); Osmolality Calculated 290 mOsm/kg (285-295); Potassium 4.0 mmol/L (3.5-5.1); Sodium 136 mmol/L (136-145); Total Protein 6.4 g/dL (6.6-8.7)
--- NOTE | 2025-10-29 07:19 | P.PN_ITS ---
Subjective 2 Subjective: Patient is a very pleasant 65-year-old male seen and examined at bedside on hospital rounds today. Patient continues to have some mild shortness of breath but states that he feels so much better than he did yesterday. Still has dependent edema. Patient denies new or worsening symptoms. Reviewed patient's labs, elevated WBC 14.62 this is most likely secondary to cellulitis of right lower extremity. Will initiate on IV Rocephin. Patient states he is not on oxygen at home, will order oxygen walk test today currently requiring 2 L/min oxygen via nasal cannula to keep oxygen saturation greater than 90%. Patient is agreeable to continued inpatient interventions, all questions and concerns addressed the patient bedside today. Vitals/I&O/Wt Last Vital Signs Temp 98.2 F 10/29/25 03:23 Pulse 83 10/29/25 03:23 Resp 20 H 10/29/25 03:23 BP 134/86 10/29/25 03:23 Pulse Ox 98 10/29/25 03:23 O2 Del Method Room Air 10/29/25 03:23 O2 Flow Rate 2 10/29/25 02:55 10/28/25 10/29/25 10/29/25 22:59 06:59 14:59 Intake Total 480 / 960 480 / 1440 Output Total 700 / 700 Balance 480 / 960 -220 / 740 Weight last 48 hrs Weight 104.281 kg Weight 103.9 kg Weight 103.963 kg Physical Exam 2 Narrative: Constitutional: NAD Neurorogic: Awake and alert. Oriented x3. No facial asymmetry, unilateral weakness or speech deficits. Head NC/AT Eyes PERRLA. EOMI. Sclera anicteric. ENT Normal external ears. Mildly heard of hearing Normal external nose. No epistaxis. MMM. Respiratory Diminished bases, clear upper lobes. No accessory muscle use. On 2.0 L of oxygen. Able to speak in full sentences. No accessory muscle use. Heart / CV Regular. No murmur. Extremities BLE edema, trace Abdomen / GI Soft. NT. ND. +BS Genitourinary Hanley catheter present Musculoskeletal Skin: fatty mass posterior torso, tender to touch no apparent drainage, right leg with erhtyema Data 10/29/25 06:47 10/29/25 06:47 A&P Assessment and plan 1. Atypical chest pain: 2. HFrEF (heart failure with reduced ejection fraction): 3. PAF (paroxysmal atrial fibrillation): 4. THOMAS (acute kidney injury): Plan: # Atypical chest pain # elevated troponin Chest discomfort of pleural nature Mild troponin elevation 34 -> 26.97, Type II demand ischemia EKG non-ischemic CXR showing moderate chronic interstitial prominence. Mild cardiac decompensation may be present. - Negative d-dimer - Most likely secondary to heart failure # HFrEF 10/20/2025 Echo: LVEF 31%. Severely increased LV cavity size. Severely decreased LV systolic function w/ severe hypokinesis of most of the macias except for the septum. No significant valvular abnormalities. 10/22/2025 LHC: No disease noted in the Left Main, Left Anterior Descending, Right, or Circumflex coronary arteries. Severe left ventricular systolic dysfunction. Ejection fraction of 20%. 10/28/2025 CXR: Moderate chronic interstitial prominence. Possible mild cardiac decompensation. 10/28/2025: Trop 34 NT-proBNP 2354 Received 40 mg IV furosemide in ED. - Dependent Edema - Continue IV lasix - CONTROL ROOM TECHNICIAN GDMT furosemide 40 mg QD, HOLD will diurese with IV lasix metoprolol tartrate 25 mg BID, continue w/ hold parameters (SBP <100 and/or HR < 60) sacubitril / valsartan 24-26 mg BID # pAF [id number] Score 4 (age and hx of HT, HTN, PAD) HAS-BLED Score 1 Denies prior history of GIB - amiodarone 200 mg BID - CONTROL ROOM TECHNICIAN not on chronic anticoagulation - Continue on ASA 81 QD - Recently given a LifeVest from cardiology, which she is supposed to be wearing, however does not have it with him # THOMAS Baseline Cr ~0.9 mg/dL. Last at baseline 10/19/25 Presenting Cr 1.3 # erythrocytosis (secondary ?) RBC 6.08 HGB 17.1 HCT 53.4 suspect secondary erythrocytosis, possibly from hypoxia or smoking available records do not account for prior myeloproliferative work-up - Trend CBC - Continue outpatient monitoring # Leukocytosis # Cellulitis WBC 16.38, 14.62 - Initiated on IV Rocephin, transition to oral at discharge # Transaminitis - mild, trend # COPD Not oxygen dependent at baseline. States he does not use bronchodilators at home. Hx of tobacco dependence ~40 years, quit smoking 1 week ago - Does not appear to be in an acute exacerbation - Currently on 2L O2. - Pending O2 Walk Test - DuoNebs Q6H scheduled # DM 2T w/ hyperglycemia Most recent A1c 6.8% (10/18/2025). Controlled. CONTROL ROOM TECHNICIAN not on oral anti-glycemic meds or insulin. - Glucose checks AC/HS - SSI level 1 - Hypoglycemia protocol # Dyslipidemia Controlled Most recent lipid panel (10/18/2025): Chol 118, HDL 36 LDL 66 Trig 82 - CONTROL ROOM TECHNICIAN on atorvastatin 20 mg daily, continue # Elevated QTc # Urinary retention Per record has urinary retention. Hanley catheter was inserted on 10/10/2025. VTE PPx: SCDs, lovenox PDMP PDMP Reviewed: Not Reviewed Attestations 2 Medical Necessity Statement*: Admitted under inpatient status. Will need continued IV diuresis, antibiotics, and home oxygen evaluation. Given complexity of patient's presentation, co- morbid conditions, and required intensity of treatment, a hospitalization exceeding two midnights is anticipated. Coding Level of Care Code 60668 Diagnoses Atypical chest pain R07.89 HFrEF (heart failure with reduced ejection fraction) I50.20 PAF (paroxysmal atrial fibrillation) I48.0 THOMAS (acute kidney injury) N17.9
--- NOTE | 2025-10-29 10:54 | PC.CHAP ---
Pastoral Care Encounter/Spiritual Assessment Type of Contact [] Declined engine head repairer visit [] Patient/Family/Request visit [] Outpatient visit [] Follow-up visit [] Physician referral [] Code/Alert [x] Routine visit [] Staff referral [] Actively dying [] Patient sleeping [x] Family support [] [] Out of room [] Palliative care [] [] Receiving care in room [] Pre-surgical visit [] Trauma [] Long length of stay [] ICU visit [] Other: Relational/Emotional Strength [x] Patient feels connected with others/family/visitors/staff [] Distress [] Loneliness/isolation [] Abandonment Spirituality of Patient [x] Person of [place] [] Attends Hinduism of their [place] [x] Believes in Prayer [] Reads Bible or Latter-Day materials [] There are Spiritual issues to be addressed [employer] Interventions [x] Prayer [x] Active listening [] Non-anxious presence [x] Spiritual/emotional support [] Crisis/trauma care [] Spiritual counseling [] Bereavement support [] Provided bereavement packet [] Provided Bible/devotional materials [] Provided toy/stuffed animal, coloring book to patient or family member [] Provided Communion [] Anointing/Arnold [] Salvation [x] Completed spiritual assessment [] Other: Impact on Illness or Injury [] Angry [] Fearful [] Anxious [] Often cries [] Exhaustion [] Unable to work [] Unable to attend gnosticism [] Unable to walk/stand [] Unable to read [] Unable to drive [] Unable to eat/drink [] Unable to sleep [] Unable to be with family [] Patient intubated [] Other: Summary Time spent with patient 5 min
[2025-10-29] MEDS: cefTRIAXone 1,000 mg SDV 1000 MG IVP (14:04)
[2025-10-29] MEDS: ATORVASTATIN 20 MG TABLET PO (20:48)
[2025-10-30] VITALS (8 sets, daily range): BP systolic 93–109; BP diastolic 53–71; PULSE 67–77; RESP 14–32; TEMP 36.6; O2SAT 94–98
[2025-10-30] MEDS: FUROsemide 10 mg/mL SDV 4mL 40 MG IVP (04:17)
--- NOTE | 2025-10-30 04:29 | PC.NURSE ---
contacted about BP of 97/53 with a MAP of 67, with an upcoming dose entresto with that BP, said to give the entresto any ways
--- NOTE | 2025-10-30 08:31 | PM.DCS ---
Discharge Providers Date of Admission: 10/28/25 07:52 Date of Discharge: October 30, 2025 Attending Provider at Admission: Eben Hua MD Attending Provider at Discharge: Alanna Marroquin NP Primary Care Provider: Allyson Dempsey DO Diagnoses at Discharge Discharge Diagnosis 1. Atypical chest pain: 2. HFrEF (heart failure with reduced ejection fraction): 3. PAF (paroxysmal atrial fibrillation): 4. THOMAS (acute kidney injury): Reason for Visit Reason for Visit: trouble breathing, chest pressure Brief History: Admission: Aniket Linder is a 65 year old male with PMHx of HTN, AFIB, HFrEF, dyslipidemia, PAD, DM 2T, COPD. Patient presented to the ED on 10/28/25 out of concern for shortness of breath. Patient presents with acute onset of shortness of breath and chest discomfort that started overnight while trying to go to sleep. Patient reports experiencing a hot flash followed by difficulty breathing that came on suddenly. Denies any preceding exertion. Characterizes discomfort as sharp that primarily occurs with coughing and deep breathing. Chest discomfort is not present at rest. Denies pressure-like sensation. Chest discomfort does not radiate to the back, extremities, neck or jaw. During the episode reported feeling lightheaded. He did not experience a syncopal event. Notes shortness of breath to be worse when laying down, but not with exertion. Episode preceding ER presentation lasted several hours prior to seeking further evaluation. Patient reports to have obtained relief after receiving a breathing treatment. Denies fever, chills, palpitations, wheezing, abdominal pain/distention, nausea and vomiting. Denies increased swelling of lower extremities. Notes weight to have been stable at home at 220 pounds over the past week. Recently hospitalized 10/18/25 - 10/23/25 for decompensated HF. Outpatient GDMT regimen consists of furosemide, metoprolol tartrate and sacubitril?valsartan. Per record, he has history of atrial fibrillation. Currently not on aspirin or any other anticoagulation. Denies prior history of thrombosis. Patient states that he was recently placed on a 3-week LifeVest. Patient was not wearing a LifeVest at time of this evaluation. His history is remarkable for DENNYS, however patient denies it and does not use CPAP. Also known to have COPD, however denies use of bronchodilators. Denies oxygen use at baseline. Reports 40-year history of tobacco dependence, most recently smoking half pack per day, states he quit 1 week ago. Denies alcohol, marijuana and recreational drug use. for GDMT last admission started on entresto Hospital Course Hospital Course # Atypical chest pain # elevated troponin Chest discomfort of pleural nature Mild troponin elevation 34 -> 26.97, Type II demand ischemia EKG non-ischemic CXR showing moderate chronic interstitial prominence. Mild cardiac decompensation may be present. - Negative d-dimer - Most likely secondary to heart failure # HFrEF 10/20/2025 Echo: LVEF 31%. Severely increased LV cavity size. Severely decreased LV systolic function w/ severe hypokinesis of most of the macias except for the septum. No significant valvular abnormalities. 10/22/2025 LHC: No disease noted in the Left Main, Left Anterior Descending, Right, or Circumflex coronary arteries. Severe left ventricular systolic dysfunction. Ejection fraction of 20%. 10/28/2025 CXR: Moderate chronic interstitial prominence. Possible mild cardiac decompensation. 10/28/2025: Trop 34 NT-proBNP 2354 Received 40 mg IV furosemide in ED. 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 # THOMAS Baseline Cr ~0.9 mg/dL. Last at baseline 10/19/25 Presenting Cr 1.3 # erythrocytosis (secondary ?) RBC 6.08 HGB 17.1 HCT 53.4 suspect secondary erythrocytosis, possibly from hypoxia or smoking available records do not account for prior myeloproliferative work-up - Trend CBC - Continue outpatient monitoring # Leukocytosis # Cellulitis WBC 16.38, 14.62 - Initiated on IV Rocephin, transition to oral at discharge # Transaminitis - mild, trend # COPD Not oxygen dependent at baseline. States he does not use bronchodilators at home. Hx of tobacco dependence ~40 years, quit smoking 1 week ago - Does not appear to be in an acute exacerbation - Currently on 2L O2. - Pending O2 Walk Test - DuoNebs Q6H scheduled # DM 2T w/ hyperglycemia Most recent A1c 6.8% (10/18/2025). Controlled. 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 - Glucose checks AC/HS - SSI level 1 - Hypoglycemia protocol # Dyslipidemia Controlled Most recent lipid panel (10/18/2025): Chol 118, HDL 36 LDL 66 Trig 82 - WAFER SUBSTRATE TESTER on atorvastatin 20 mg daily, continue # Elevated QTc # Urinary retention Per record has urinary retention. Hanley catheter was inserted on 10/10/2025. Discharge: Patient diuresed very well, weaned completely off of oxygen. Continues oral antibiotic therapy for cellulitis at discharge. Prescribed nebulizer with as needed DuoNebs, with history of smoking and COPD. Patient states that he feels so much better, has no shortness of breath at time of discharge and denies chest pain. Discharge is in stable condition in care of spouse. Advised outpatient follow-up with primary care provider, advised sleep study with concern for sleep apnea. Patient is also advised to follow-up with cardiology within the next 1 to 2 weeks. Patient was prescribed Farxiga in setting of heart failure as a preventative measure. Patient advised compliance with his home medications. Spouse did bring up LifeVest, patient is wearing at discharge. All questions and concerns addressed with the patient and his spouse at time of discharge. Physical Exam Narrative: Constitutional: NAD Neurorogic: Awake and alert. Oriented x3. No facial asymmetry, unilateral weakness or speech deficits. Head NC/AT Eyes PERRLA. EOMI. Sclera anicteric. ENT Normal external ears. Mildly heard of hearing Normal external nose. No epistaxis. MMM. Respiratory Diminished bases, clear upper lobes. No accessory muscle use. On 2.0 L of oxygen. Able to speak in full sentences. No accessory muscle use. Heart / CV Regular. No murmur. Extremities BLE edema, trace Abdomen / GI Soft. NT. ND. +BS Genitourinary Hanley catheter present Musculoskeletal Skin: fatty mass posterior torso, tender to touch no apparent drainage, right leg with erhtyema Discharge Data Studies Completed and Pending Completed Studies During Hospitalization Category Date Time Status XR chest 1V portable [id number] Stat Exams 10/28/25 06:12 Completed Radiology Impressions Chest X-Ray 10/28/25 06:12 IMPRESSION: Chronic changes. Possible mild cardiac decompensation. Laboratory Results WBC 14.62 10^3/uL (3.29-11.43) H 10/29/25 06:47 RBC 5.28 10^6/uL (3.85-5.65) 10/29/25 06:47 Hgb 15.10 g/dL (11.27-16.99) 10/29/25 06:47 Hct 47.5 % (37-53) 10/29/25 06:47 MCV 90.0 fl (82-101) 10/29/25 06:47 MCH 28.6 pg (27-33) 10/29/25 06:47 MCHC 31.8 g/dL (30-55) 10/29/25 06:47 RDW 13.8 % (12.1-15.1) 10/29/25 06:47 Plt Count 277 10^3/cmm (157-399) 10/29/25 06:47 MPV 11.1 fL (7.4-10.4) H 10/29/25 06:47 Neut % (Auto) 66.5 % 10/29/25 06:47 Lymph % (Auto) 21.6 % 10/29/25 06:47 [place] % (Auto) 8.1 % 10/29/25 06:47 Eos % (Auto) 1.6 % 10/29/25 06:47 Baso % (Auto) 0.7 % 10/29/25 06:47 Neut # (Auto) 9.72 10^3/uL (1.8-7.7) H 10/29/25 06:47 Lymph # (Auto) 3.2 10^3/uL (0.8-4.8) 10/29/25 06:47 [place] # (Auto) 1.2 10^3/uL (0.2-0.9) H 10/29/25 06:47 Eos # (Auto) 0.2 10^3/uL (0.0-0.8) 10/29/25 06:47 Baso # (Auto) 0.1 10^3/uL (0.0-0.1) 10/29/25 06:47 Nucleated RBC % (auto) 0 % 10/29/25 06:47 Nucleated RBCs # 0.0 /100WBC 10/29/25 06:47 D-Dimer 0.35 ug/mLFEU (0-0.59) 10/28/25 06:25 Sodium 136 mmol/L (136-145) 10/29/25 06:47 Potassium 4.0 mmol/L (3.5-5.1) 10/29/25 06:47 Chloride 99 mmol/L (98-107) 10/29/25 06:47 Carbon Dioxide 25 mmol/L (22-29) 10/29/25 06:47 Anion Gap 16.0 (5-19) 10/29/25 06:47 BUN 26 mg/dL (8-23) H 10/29/25 06:47 Creatinine 1.3 mg/dL (0.7-1.2) H 10/29/25 06:47 GFR Calculation 55.4 mL/min (90-130) L 10/29/25 06:47 Glucose 157 mg/dL (65-115) H 10/29/25 06:47 POC Glucose 134 mg/dL (70-110) H 10/30/25 06:15 Calculated Osmolality 290 mOsm/kg (285-295) 10/29/25 06:47 Calcium 8.6 mg/dL (8.5-10.5) 10/29/25 06:47 Magnesium 2.1 mg/dL (1.7-2.3) 10/29/25 06:47 Total Bilirubin 0.7 mg/dL (0.15-1.2) 10/29/25 06:47 AST 26 U/L (0-40) 10/29/25 06:47 ALT 44 U/L (0-41) H 10/29/25 06:47 Alkaline Phosphatase 107 U/L (40-130) 10/29/25 06:47 Troponin T Baseline 34 ng/L (0-15) H 10/28/25 06:25 Troponin T 120 Minute 26.97 ng/L (0-15) H 10/28/25 08:27 Delta Troponin T -7.03 ABS# (0-10) L 10/28/25 08:27 Troponin T Hi Sens 6Hr 27.14 ng/L (0-15) H 10/28/25 12:22 Troponin T Hi Sens 6Hr Delta -6.86 ng/L (0-12) L 10/28/25 12:22 NT-Pro-B Natriuret Pep 2354 pg/mL (0-125) H 10/28/25 06:25 Total Protein 6.4 g/dL (6.6-8.7) L 10/29/25 06:47 Albumin 3.5 g/dL (3.5-5.2) 10/29/25 06:47 Globulin 2.9 g/dL (1.3-4.6) 10/29/25 06:47 Procalcitonin 0.07 ng/mL (0-0.5) 10/28/25 06:25 Vitals Last Vital Signs Temp 97.9 F 10/30/25 08:00 Pulse 77 10/30/25 08:00 Resp 14 10/30/25 08:00 BP 103/65 10/30/25 08:00 Pulse Ox 96 10/30/25 08:00 O2 Del Method Room Air 10/30/25 07:46 O2 Flow Rate 3 10/30/25 04:11 Discharge Plan Discharge Patient Disposition: Home Condition: Stable Prescriptions: New aspirin 81 mg Tablet,Chewable 81 mg PO DAILY 90 Days Qty: 90 0RF dapagliflozin propanediol 10 mg Tablet 10 mg PO DAILY 90 Days Qty: 90 0RF clindamycin HCl [Cleocin HCl] 300 mg capsule 300 mg PO Q8H 7 Days Qty: 21 0RF ipratropium-albuterol 0.5 mg-3 mg(2.5 mg base)/3 mL solution for nebulization 3 ml inhalation Q6H PRN (Reason: shortness of breath or wheezing) Qty: 180 0RF Continued atorvastatin 20 mg tablet 20 mg PO DAILY Qty: 90 1RF Rx Instructions: once daily at bedtime sacubitril-valsartan [Entresto] 24-26 mg Tablet 1 tab PO BID Qty: 60 3RF furosemide [Lasix] 40 mg tablet 40 mg PO DAILY Qty: 30 0RF amiodarone [Pacerone] 200 mg Tablet 200 mg PO BID Qty: 60 0RF Rx Instructions: 200 mg BID x1 week, then 200 mg daily thereafter metoprolol tartrate 25 mg Tablet 25 mg PO BID@0900,2100 Qty: 60 1RF potassium chloride 20 mEq tablet extended release 20 meq PO DAILY Discharge Order = DC NOW: Discharge Order (Routine); Ordered 10/30/25 Ordered By: Alanna Marroquin Other Ambulatory Orders: DME: Nebulizer with Neb Kit (Order) Location: None Selected Ordered By: Alanna Marroquin Referrals: Allyson Dempsey DO [Primary Care Provider, Family Practice] - 11/11/25 9:00 am Referral Note: Recommend sleep study Elizabeth Pierce FNP [Nurse Practitioner, Cardiology] - 11/20/25 2:30 pm Discharge Diet: Cardiac and Low Salt Discharge Activity: Resume usual activity Patient Instructions: Clindamycin (By mouth) (Cleocin, Cleocin HCl, Cleocin Pediatric), Ipratropium (By breathing), Aspirin (By mouth), Dapagliflozin (By mouth) (Farxiga), Heart Failure (DC), Acute Kidney Injury (DC), COPD Stoplight, Chest Pain Stoplight, Opioid Safety, Patient Portal & Karli Instructions Discharge Attestations Time Spent in Discharge Care*: greater than 30 min Quality Metrics Clinical Quality Measures [ No reported AMI, CVA or VTE this stay] Coding Level of Care Code 20607 Diagnoses Atypical chest pain R07.89 HFrEF (heart failure with reduced ejection fraction) I50.20 PAF (paroxysmal atrial fibrillation) I48.0 THOMAS (acute kidney injury) N17.9
--- NOTE | 2025-10-30 09:16 | PC.NURSE ---
dme: nebulizer awaiting for case mgt.
== END 2025-10-30 12:00 | disposition home or self-care (01) | DRG 291 ==
LOC: ER 06:30 → CSU 07:52
PROVIDERS: Emergency Medicine; Nurse Practitioner Gerontology; Admitting Provider Family Medicine; Emergency Provider Emergency Medicine; PCP Family Medicine; Visit Provider Registered Nurse
DX: I11.0 Hypertensive heart disease with heart failure (principal); I50.23 Acute on chronic systolic (congestive) heart failure; N17.9 Acute kidney failure, unspecified; L03.90 Cellulitis, unspecified; R07.89 Other chest pain; I48.0 Paroxysmal atrial fibrillation; E78.5 Hyperlipidemia, unspecified; E11.51 Type 2 diabetes mellitus with diabetic peripheral angiopathy without gangrene; E11.65 Type 2 diabetes mellitus with hyperglycemia; J44.9 Chronic obstructive pulmonary disease, unspecified; R79.89 Other specified abnormal findings of blood chemistry; F17.210 Nicotine dependence, cigarettes, uncomplicated; R33.9 Retention of urine, unspecified; Z79.82 Long term (current) use of aspirin
CPT/HCPCS: 36415; 36416; 71045; 80053; 82962; 83735; 83880; 84145; 84484; 85025; 85378; 93005; 94640; 94664; 94760; 96372; 99285; J0696; J1650; J1815; J1938; J9999

== ENCOUNTER → 2025-11-07 13:55 | Outpatient (BNVA) | payer MEDICARE, MEDICAID, SELFPAY | PROVIDERS: PCP Family Medicine; Visit Provider Nurse Practitioner Family | DX: R06.02 Shortness of breath (principal) | CPT/HCPCS: 36415; 71046; 80048; 83880; 99214 ==

== ENCOUNTER → 2025-11-11 09:16 | Outpatient (BNVA) | payer MEDICARE, MEDICAID, SELFPAY | PROVIDERS: PCP Family Medicine; Visit Provider Family Medicine | DX: R06.02 Shortness of breath (principal); R39.11 Hesitancy of micturition; N17.9 Acute kidney failure, unspecified | CPT/HCPCS: 81000; 87086 ==

== ENCOUNTER 2025-11-18 05:56 | Observation (INO) | payer MEDICARE, MEDICAID, SELFPAY ==
[2025-11-18] VITALS (29 sets, daily range): BP systolic 82–141; BP diastolic 53–105; PULSE 66–83; RESP 13–34; TEMP 36.4–37; O2SAT 89–95; BMI 32.3
--- NOTE | 2025-11-18 05:58 | XRR_ITS ---
PROCEDURE INFORMATION: Exam: XR Chest Exam date and time: 11/18/2025 5:57 AM Age: 65 years old Clinical indication: Cough and shortness of breath; Cough with SOB. History of chf and copd. TECHNIQUE: Imaging protocol: Radiologic exam of the chest. Views: 1 view. COMPARISON: CR XR chest 2V* [id number] 11/07/2025 2:00 PM FINDINGS: Lungs: Rounded infiltrate developing in the right upper lobe with mild bilateral lower lobe pulmonary infiltrates. Mild vascular and interstitial prominence. The findings may be solely due to congestive heart failure although superimposed pneumonia could be present , particularly in the right upper lobe.. Pleural spaces: Unremarkable. No pleural effusion. No pneumothorax. Heart/Mediastinum: See Vasculature finding. Vasculature: Mild cardiomegaly and uncoiling of the thoracic aorta. Bones/joints: Unremarkable. XR/XR chest 1V portable [id number] IMPRESSION: Mild CHF with superimposed pneumonia not excluded.
--- NOTE | 2025-11-18 06:03 | ECG_ITS ---
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 Measurements Intervals Leona Rate: 73 P: 51 HI: 250 QRS: -77 QRSD: 173 T: 31 QT: 476 QTc: 526 Interpretive Statements SINUS RHYTHM WITH FIRST DEGREE AV BLOCK RIGHT BUNDLE BRANCH BLOCK [120+ ms QRS DURATION, UPRIGHT V1, 40+ ms S IN I/aVL/V4/V5/V6] LEFT ANTERIOR FASCICULAR BLOCK [QRS AXIS <= -45, QR IN I, RS IN II] Compared to ECG 10/28/2025 12:49:14 NO SIGNIFICANT CHANGE Electronically Signed On 11-21-2025 16:37:53 UNION CONTRACT REPRESENTATIVE by Wang Shields M.D. [email or web address]
--- NOTE | 2025-11-18 06:06 | W.ED.SOB ---
HPI - SOB/Dyspnea General: Chief Complaint: Shortness of Breath/Dyspnea Stated Complaint: SOB Time Seen by Provider: 11/18/25 05:57 Source: patient and EMS Mode of arrival: EMS Limitations: no limitations History of Present Illness: HPI Narrative: 65-year-old male has a history of COPD along with CHF states he started having some shortness of breath this morning. States that he has been having a cough as well and some increased wheezing. Per EMS patient sats was in the 80s when they arrived they did give him a breathing treatment he feels improved with O2 sats currently 91. He denies any chest pain denies any fevers. Denies any worse improved factors. Related Data Home Medications ?Medication ?Instructions ?Recorded ?Confirmed potassium chloride 20 mEq 20 meq PO DAILY 10/28/25 11/11/25 tablet,extended release amiodarone 200 mg tablet (Pacerone) 200 mg PO QDAY 11/07/25 11/11/25 dapagliflozin propanediol 10 mg 10 mg PO DAILY 11/18/25 tablet (Farxiga) Previous Rx's ?Medication ?Instructions ?Recorded atorvastatin 20 mg tablet 20 mg PO DAILY #90 tabs 08/22/25 furosemide 40 mg tablet (Lasix) 40 mg PO DAILY #30 tabs 10/23/25 metoprolol tartrate 25 mg tablet 25 mg PO BID@0900,2100 #60 tabs 10/23/25 sacubitril 24 mg-valsartan 26 mg 1 tab PO BID #60 tabs 10/23/25 tablet (Entresto) aspirin 81 mg chewable tablet 81 mg PO DAILY 90 days #90 tabs 10/30/25 ipratropium 0.5 mg-albuterol 3 mg 3 ml inhalation Q6H PRN shortness 10/30/25 (2.5 mg base)/3 mL nebulization of breath or wheezing #180 mL soln tamsulosin 0.4 mg capsule 0.4 mg PO DAILY #90 caps 11/12/25 Allergies Allergy/AdvReac Type Severity Reaction Status Date / Time No Known Allergies Allergy Verified 11/11/25 08:48 Review of Systems Resp: Reports: dyspnea PFS ED PFSH: Medical History (Updated 11/18/25 @ 07:45 by Juvenal Nair MD) No pertinent past medical history Leg fracture, right Surgical History H/O knee surgery Left H/O pelvic surgery Family History Father Heart disease Mother Dementia Social History Smoking and tobacco/nicotine status: former use of tobacco/nicotine Quit status (tobacco/nicotine): considering quitting Alcohol intake: former Substance/Drug Use: never Physical Exam Const: COMMON NORMALS: patient oriented x3 HENMT: COMMON NORMALS: normocephalic and atraumatic HEAD & SCALP: normocephalic and atraumatic Eye: COMMON NORMALS: Equal, round and reactive pupils present and EOMs intact bilaterally PUPIL: Yes Equal, round and reactive pupils present Neck/C-Spine: COMMON NORMALS: full ROM and supple Chest: COMMONS NORMALS: normal inspection of the chest and normal palpation of entire chest wall Resp: COMMON NORMALS: normal respiratory effort, No retractions, No use of accessory muscles and clear to auscultation bilaterally AUSCULTATION: clear to auscultation bilaterally Cardio: COMMON NORMALS: regular rate, regular rhythm and No murmurs present (Cardio) RATE: regular rate RHYTHM: regular rhythm GI: COMMON NORMALS: Normal to inspection, nondistended, normoactive bowel sounds present, Soft to palpation, non-tender and no masses PALPATION: Yes Soft to palpation Extremity: COMMON NORMALS: normal to inspection and full ROM Neuro: COMMON NORMALS: patient oriented x3, moves all extremities and no focal motor deficits Psych: COMMON NORMALS: mental status grossly normal, Normal thought process present and cooperative THOUGHT PROCESS: Normal thought process present Skin: COMMON NORMALS: no rashes or lesions noted and no wounds GENERAL SKIN EXAM: no rashes or lesions noted Course Vital Signs: Vital signs: Vital Signs Temperature 98.6 F 11/18/25 05:57 Pulse Rate 68 11/18/25 07:33 Respiratory Rate 18 11/18/25 07:33 Blood Pressure 113/65 11/18/25 06:22 Pulse Oximetry 89 L 11/18/25 07:33 Oxygen Delivery Me thod Room Air 11/18/25 07:33 Fraction of Inspir ed Oxygen 21 11/18/25 07:33 MDM - SOB/Dyspnea Medical Decision Making 65-year-old male presents for shortness of breath differential includes CHF, COPD, pneumonia, pulm emboli. Patient has no signs of pulmonary emboli here. Chest x-ray does show some pulmonary edema along with a right upper lobe infiltrate with likely pneumonia. Patient was given Lasix here along with antibiotics. Patient is now requiring 2 L oxygen will admit at this time due to his pneumonia along with hypoxia EKG interpreted by me at 0603 normal sinus rhythm heart rate [address] elevation QRS 173 QTc 502 Medical Records I reviewed the patient's medical records. Lab Data I reviewed the patient's lab results. 11/18/25 06:17 11/18/25 06:17 Labs/Radiology: Laboratory Results WBC 11.51 10^3/uL (3.29-11.43) H 11/18/25 06:17 RBC 4.67 10^6/uL (3.85-5.65) 11/18/25 06:17 Hgb 13.30 g/dL (11.27-16.99) 11/18/25 06:17 Hct 42.2 % (37-53) 11/18/25 06:17 MCV 90.4 fl (82-101) 11/18/25 06:17 MCH 28.5 pg (27-33) 11/18/25 06:17 MCHC 31.5 g/dL (30-55) 11/18/25 06:17 RDW 15.7 % (12.1-15.1) H 11/18/25 06:17 Plt Count 226 10^3/cmm (157-399) 11/18/25 06:17 MPV 11.0 fL (7.4-10.4) H 11/18/25 06:17 Neut % (Auto) 70.5 % 11/18/25 06:17 Lymph % (Auto) 16.4 % 11/18/25 06:17 [place] % (Auto) 9.9 % 11/18/25 06:17 Eos % (Auto) 2.2 % 11/18/25 06:17 Baso % (Auto) 0.5 % 11/18/25 06:17 Neut # (Auto) 8.11 10^3/uL (1.8-7.7) H 11/18/25 06:17 Lymph # (Auto) 1.9 10^3/uL (0.8-4.8) 11/18/25 06:17 [place] # (Auto) 1.1 10^3/uL (0.2-0.9) H 11/18/25 06:17 Eos # (Auto) 0.3 10^3/uL (0.0-0.8) 11/18/25 06:17 Baso # (Auto) 0.1 10^3/uL (0.0-0.1) 11/18/25 06:17 Nucleated RBC % (auto) 0 % 11/18/25 06:17 Nucleated RBCs # 0.0 /100WBC 11/18/25 06:17 Sodium 136 mmol/L (136-145) 11/18/25 06:17 Potassium 4.4 mmol/L (3.5-5.1) 11/18/25 06:17 Chloride 103 mmol/L (98-107) 11/18/25 06:17 Carbon Dioxide 21 mmol/L (22-29) L 11/18/25 06:17 Anion Gap 16.4 (5-19) 11/18/25 06:17 BUN 15 mg/dL (8-23) 11/18/25 06:17 Creatinine 1.2 mg/dL (0.7-1.2) 11/18/25 06:17 GFR Calculation 60.8 mL/min (90-130) L 11/18/25 06:17 Glucose 145 mg/dL (65-115) H 11/18/25 06:17 Calculated Osmolality 285 mOsm/kg (285-295) 11/18/25 06:17 Calcium 8.9 mg/dL (8.5-10.5) 11/18/25 06:17 Total Bilirubin 0.7 mg/dL (0.15-1.2) 11/18/25 06:17 AST 28 U/L (0-40) 11/18/25 06:17 ALT 29 U/L (0-41) 11/18/25 06:17 Alkaline Phosphatase 151 U/L (40-130) H 11/18/25 06:17 NT-Pro-B Natriuret Pep 4254 pg/mL (0-125) H 11/18/25 06:17 Total Protein 6.1 g/dL (6.6-8.7) L 11/18/25 06:17 Albumin 3.2 g/dL (3.5-5.2) L 11/18/25 06:17 Globulin 2.9 g/dL (1.3-4.6) 11/18/25 06:17 Influenza A (PCR) Negative (Negative) 11/18/25 06:29 Influenza Type B (PCR) Negative (Negative) 11/18/25 06:29 RSV (PCR) Negative (Negative) 11/18/25 06:29 SARS-CoV-2 (PCR) Negative (Negative) 11/18/25 06:29 All radiology interpretation(s) finalized by discharge Discharge Plan Discharge Patient Disposition: Admitted As Inpatient Clinical Impression: Pneumonia, Acute respiratory failure with hypoxia, CHF (congestive heart failure) Condition: Stable Coding Level of Care Code ED Advertising Strategist for Shannan Santos
--- OUTSIDE RECORDS SUMMARY | 2025-11-18 06:06 | XMS_ITS | Encounter Summary ---
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
--- OUTSIDE RECORDS SUMMARY | 2025-11-18 06:06 | XMS_ITS | Encounter Summary ---
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
--- OUTSIDE RECORDS SUMMARY | 2025-11-18 06:06 | XMS_ITS | Clinical Summary ---
Author Organization [employer] Address [address] 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
--- OUTSIDE RECORDS SUMMARY | 2025-11-18 06:06 | XMS_ITS | Encounter Summary ---
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
--- OUTSIDE RECORDS SUMMARY | 2025-11-18 06:06 | XMS_ITS | Encounter Summary ---
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
--- OUTSIDE RECORDS SUMMARY | 2025-11-18 06:06 | XMS_ITS | Encounter Summary ---
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
--- OUTSIDE RECORDS SUMMARY | 2025-11-18 06:06 | XMS_ITS | Encounter Summary ---
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
--- OUTSIDE RECORDS SUMMARY | 2025-11-18 06:06 | XMS_ITS | Encounter Summary ---
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
[2025-11-18] MEDS: methylPREDNISolone sod succ 125 mg/2 mL INJ IV (06:14)
[2025-11-18 06:30] LABS: Hematocrit 42.2 % (37-53); Hemoglobin 13.30 g/dL (11.27-16.99); Mean Corpuscular HGB Conc 31.5 g/dL (30-55); Mean Corpuscular Hemoglobin 28.5 pg (27-33); Mean Corpuscular Volume 90.4 fl (82-101); Nucleated Red Blood Cells % 0 %; Platelet Count 226 10^3/cmm (157-399); Red Blood Count 4.67 10^6/uL (3.85-5.65); White Blood Count 11.51 10^3/uL (3.29-11.43)
[2025-11-18 07:01] LABS: Alanine Aminotransferase 29 U/L (0-41); Albumin Level 3.2 g/dL (3.5-5.2); Alkaline Phosphatase 151 U/L (40-130); Blood Urea Nitrogen 15 mg/dL (8-23); Calcium 8.9 mg/dL (8.5-10.5); Carbon Dioxide 21 mmol/L (22-29); Chloride 103 mmol/L (98-107); Creatinine Clr Calc Pharmacy 73.4576; Globulin 2.9 g/dL (1.3-4.6); Glucose 145 mg/dL (65-115); NT Pro B Type Natriuretic Pept 4254 pg/mL (0-125); Osmolality Calculated 285 mOsm/kg (285-295); Sodium 136 mmol/L (136-145); Total Protein 6.1 g/dL (6.6-8.7)
[2025-11-18 07:06] LABS: Anion Gap 16.4 (5-19); Aspartate Amino Transferase 28 U/L (0-40); Potassium 4.4 mmol/L (3.5-5.1)
[2025-11-18 07:17] LABS: Respiratory Syncytial Virus Ce NEGATIVE (Negative); SARS-CoV-2 PCR NEGATIVE (Negative)
[2025-11-18] MEDS: FUROsemide 10 mg/mL SDV 4mL 40 MG IVP ×2 (07:55→17:07)
[2025-11-18] MEDS: cefTRIAXone 1,000 mg SDV 1000 MG IVP (07:57)
--- NOTE | 2025-11-18 10:12 | P.HP_ITS ---
Providers/Chief Complaint 2 Admitting Physician: Rain Martinez APRN, Sawyer Barroso MD Primary Care Provider: Allyson Dempsey DO Chief Complaint: SOB History of Present Illness Aniket Linder is a 65 year old male with prior medical history of HTN emergency, PAD, DENNYS, HFrEF, COPD, CHF, COPD, sepsis, neuropathy, nicotine dependence, nocturia, hyperglycemia, pulmonary edema, and atrial fibrillation with RVR presenting with complaints of shortness of breath. Patient reports baseline intermittent shortness of breath episodes, and he was recently hospitalized 10/18/25-10/23/25 and 10/28/25-10/30/25 for CHF exacerbation - required bipap during admission. This morning, he began an episode of shortness of breath and wheezing that has become progressively worse. EMS was called and he was found to be in the 80s SpO2 on room air. He normally does not require oxygen at home. He was transported to [facility] ED for further assessment and has had home O2 walk tests in the past. In the ED, BP 103/62, HR 73, RR 19, T98.6, O2 95% nasal cannula. WBC 11.51, Hgb 13, PLT 226. Glucose 145. BUN and creatinine WNL. GFR 60.8. BNP 4254. Albumin 3.2. CXR; CHF with superimposed pneumonia not excluded, see full results. Will admit to Hospitalist Service for further evaluation and treatment. Review of Systems 2 Const: Denies: fever(s) or chills Card: Denies: chest pain, palpitations, irregular heart rhythm, edema, swelling of feet/ankles or lightheadedness Resp: Reports: dyspnea and non-productive cough GI: Denies: abdominal pain : Reports: difficulty urinating, difficulty starting urination and oliguria; Denies: flank pain Medications/Allergies Home Medications ?Medication ?Instructions ?Recorded ?Confirmed ?Last Taken ?Type atorvastatin 20 mg tablet 20 mg PO DAILY #90 tabs 01/1511/18/25 11/17/25 Rx furosemide 40 mg tablet (Lasix) 40 mg PO DAILY #30 tab s 10/23/25 11/18/25 11/17/25 Rx metoprolol tartrate 25 mg tablet 25 mg PO BID@0900,210 0 #60 tabs 10/23/25 11/18/25 11/17/25 21:00 Rx sacubitril 24 mg-valsartan 26 mg 1 tab PO BID #60 tabs 10/23/25 11/18/25 11/17/25 Rx tablet (Entresto) potassium chloride 20 mEq 20 meq PO DAILY 10/28/2511/17/25 History tablet,extended release aspirin 81 mg chewable tablet 81 mg PO DAILY 90 days # 90 tabs 10/30/25 11/18/25 11/17/25 Rx ipratropium 0.5 mg-albuterol 3 mg 3 ml inhalation Q6H PRN shortness 10/30/25 11/18/25 11/17/25 Rx (2.5 mg base)/3 mL nebulization of breath or wheezing #180 mL soln amiodarone 200 mg tablet (Pacerone) 200 mg PO QDAY 11/18/25 11/17/25 History tamsulosin 0.4 mg capsule 0.4 mg PO DAILY #90 caps 11/18/25 Unknown Rx dapagliflozin propanediol 10 mg 10 mg PO DAILY 5 11/18/25 11/17/25 History tablet (Farxiga) Allergies Allergy/AdvReac Type Severity Reaction Status Date / Time No Known Allergies Allergy Verified 11/11/25 08:48 PFSH Acute 2 PFSH: Medical History No pertinent past medical history Leg fracture, right Surgical History H/O knee surgery Left H/O pelvic surgery Family History Father Heart disease Mother Dementia Social History Smoking and tobacco/nicotine status: former use of tobacco/nicotine Quit status (tobacco/nicotine): considering quitting Alcohol intake: former Substance/Drug Use: never Vitals/I&O/Wt Last Vital Signs Temp 98.6 F 11/18/25 05:57 Pulse 73 11/18/25 14:00 Resp 19 H 11/18/25 13:45 BP 103/62 11/18/25 14:00 Pulse Ox 95 11/18/25 14:00 O2 Del Method Nasal Cannula 11/18/25 14:16 O2 Flow Rate 2.5 11/18/25 08:00 FiO2 21 11/18/25 07:33 11/18/25 11/18/25 11/18/25 06:59 14:59 22:59 Intake Total 250 / 250 Balance 250 / 250 Weight last 48 hrs Weight 103.192 kg Weight 102.058 kg Physical Exam 2 Narrative: Neurologic: Awake and alert. Oriented x3. No facial asymmetry, unilateral weakness or speech deficits. Head NC/AT Eyes PERRLA. EOMI. Sclera anicteric. ENT Normal external ears. Mildly heard of hearing Normal external nose. No epistaxis. MMM. Respiratory Decreased breath sounds. No accessory muscle use. O2 2L. Able to speak in full sentences. No accessory muscle use. Heart / CV Regular. No murmur. Extremities BLE edema, trace Abdomen / GI Soft. NT. ND. +BS Data 11/18/25 06:17 11/18/25 06:17 Micro: Microbiology 11/18/25 06:33 Blood Culture - Preliminary Blood SPECIMEN COLLECTED 11/18/25 06:30 Blood Culture - Preliminary Blood SPECIMEN COLLECTED A&P Assessment and plan 1. HFrEF (heart failure with reduced ejection fraction): 10/20/2025 Echo: LVEF 31%. Severely increased LV cavity size. Severely decreased LV systolic function w/ severe hypokinesis of most of the macias except for the septum. No significant valvular abnormalities. 10/22/2025 LHC: No disease noted in the Left Main, Left Anterior Descending, Right, or Circumflex coronary arteries. Severe left ventricular systolic dysfunction. Ejection fraction of 20%. 10/28/2025 CXR: Moderate chronic interstitial prominence. Possible mild cardiac decompensation.Trop 34 NT-proBNP 2354 11/18/2025: CXR; CHF with superimposed pneumonia not excluded, see full results. Troponin pending. BNP 4254 Holding home Lasix PO. Start IV lasix 40mg Continue home home Metoprolol and Valsartan 2. PAF (paroxysmal atrial fibrillation): [id number] Score 4 EKG Telemetry Continue home Amiodarone BID and ASA 3. COPD (chronic obstructive pulmonary disease): Patient does not require home O2 at baseline Requiring 2-3 L at baseline Pulse oximetry Supplemental o2 to keep saturations > 90% in the setting of COPD Duonebs 4. Urinary retention: Complaints of retention and not urinating enough Strict intake and output Bladder scan PRN and consider romero placement Continue home flomax 0.4 mg PO daily 5. Diabetes type 2: 10/18/25 A1c 6.8%, not on home meds Glucose 145 today Sliding scale- Hyperglycemia/hypoglycemia protocols 6. Dyslipidemia: Continue home atorvastatin 7. Nicotine dependence, cigarettes, with unspecified nicotine-induced disorders: Patient has smoked for 40 years Recent attempts at quitting intermittent Cessation education Nicotine patch PDMP PDMP Reviewed: Not Reviewed Attestations 2 Medical Necessity Statement*: Patient not expected to stay greater than two midnights. Plan is to wean o2 back to baseline of room air. Diagnoses HFrEF (heart failure with reduced ejection fraction) I50.20 PAF (paroxysmal atrial fibrillation) I48.0 COPD (chronic obstructive pulmonary disease) J44.9 Urinary retention R33.9 Diabetes type 2 E11.9 Dyslipidemia E78.5 Nicotine dependence, cigarettes, with unspecified nicotine-induced disorders F17.219
[2025-11-18] MEDS: methylPREDNISolone sod succ 125 mg/2 mL INJ 80 MG IVP (17:07)
[2025-11-18] MEDS: lactobacillus 1 Tablet 1 TAB PO (17:08)
[2025-11-18 17:13] LABS: Troponin T (5th) Once 18 ng/L (0-15)
[2025-11-19] VITALS (9 sets, daily range): BP systolic 103–119; BP diastolic 61–73; PULSE 61–76; RESP 17–18; TEMP 36.4–36.7; O2SAT 87–99
[2025-11-19] MEDS: methylPREDNISolone sod succ 125 mg/2 mL INJ 80 MG IVP ×2 (01:15→08:27)
[2025-11-19] MEDS: lactobacillus 1 Tablet 1 TAB PO (05:16)
[2025-11-19] MEDS: ATORVASTATIN 20 MG TABLET PO (05:16)
[2025-11-19] MEDS: DAPAGLIFLOZIN 10 MG TABLET PO (05:16)
[2025-11-19 06:05] LABS: Hematocrit 41.6 % (37-53); Hemoglobin 13.10 g/dL (11.27-16.99); Mean Corpuscular HGB Conc 31.5 g/dL (30-55); Mean Corpuscular Hemoglobin 28.8 pg (27-33); Mean Corpuscular Volume 91.4 fl (82-101); Nucleated Red Blood Cells % 0 %; Platelet Count 266 10^3/cmm (157-399); Red Blood Count 4.55 10^6/uL (3.85-5.65); White Blood Count 9.54 10^3/uL (3.29-11.43)
[2025-11-19 06:26] LABS: Anion Gap 19.3 (5-19); Blood Urea Nitrogen 22 mg/dL (8-23); Calcium 8.8 mg/dL (8.5-10.5); Carbon Dioxide 23 mmol/L (22-29); Chloride 99 mmol/L (98-107); Glucose 235 mg/dL (65-115); Magnesium 2.8 mg/dL (1.7-2.3); Osmolality Calculated 295 mOsm/kg (285-295); Potassium 4.3 mmol/L (3.5-5.1); Sodium 137 mmol/L (136-145)
[2025-11-19 06:57] LABS: NT Pro B Type Natriuretic Pept 4549 pg/mL (0-125)
[2025-11-19] MEDS: cefTRIAXone 1,000 mg SDV 1000 MG IVP (08:27)
--- NOTE | 2025-11-19 09:29 | P.DS_ITS ---
<Statement entered by Riley Escobedo MD - 11/20/25 20:27> Patient case reviewed. Agree with findings as outlined below. Discharge Providers Date of Admission: 11/18/25 07:57 Date of Discharge: November 19, 2025 Attending Provider at Admission: Sawyer Barroso MD Attending Provider at Discharge: Rain Martinez, DIRECTOR [employer]ANGE, NETWORK FIREWALL ENGINEER Primary Care Provider: Allyson Dempsey DO Diagnoses at Discharge Discharge Diagnosis 1. HFrEF (heart failure with reduced ejection fraction): 2. PAF (paroxysmal atrial fibrillation): 3. COPD (chronic obstructive pulmonary disease): 4. Urinary retention: 5. Diabetes type 2: 6. Dyslipidemia: 7. Nicotine dependence, cigarettes, with unspecified nicotine-induced disorders: Other Information Additional DC diagnoses/information: 1. HFrEF (heart failure with reduced ejection fraction): 10/20/2025 Echo: LVEF 31%. Severely increased LV cavity size. Severely decreased LV systolic function w/ severe hypokinesis of most of the macias except for the septum. No significant valvular abnormalities. 10/22/2025 LHC: No disease noted in the Left Main, Left Anterior Descending, Right, or Circumflex coronary arteries. Severe left ventricular systolic dysfunction. Ejection fraction of 20%. 10/28/2025 CXR: Moderate chronic interstitial prominence. Possible mild cardiac decompensation.Trop 34 NT-proBNP 2354 11/18/2025: CXR; CHF with superimposed pneumonia not excluded, see full results. Troponin pending. BNP 4254 Holding home Lasix PO. Start IV lasix 40mg Continue home home Metoprolol and Valsartan 2. PAF (paroxysmal atrial fibrillation): [id number] Score 4 EKG Telemetry Continue home Amiodarone BID and ASA 3. COPD (chronic obstructive pulmonary disease): Patient does not require home O2 at baseline Was requiring 2-3 L yesterday but now back to room air baseline Pulse oximetry Supplemental o2 to keep saturations > 90% in the setting of COPD Duonebs 4. Urinary retention: Complaints of retention and not urinating enough Strict intake and output Bladder scan PRN and consider romero placement Continue home flomax 0.4 mg PO daily 5. Diabetes type 2: 10/18/25 A1c 6.8%, not on home meds Glucose 145 today Sliding scale- Hyperglycemia/hypoglycemia protocols Now continue back on home regimen 6. Dyslipidemia: Continue home atorvastatin 7. Nicotine dependence, cigarettes, with unspecified nicotine-induced disorders: Patient has smoked for 40 years Recent attempts at quitting intermittent Cessation education Reason for Visit Reason for Visit: SOB Hospital Course Hospital Course Aniket Linder is a 65 year old male with prior medical history of HTN emergency, PAD, DENNYS, HFrEF, COPD, CHF, COPD, sepsis, neuropathy, nicotine dependence, nocturia, hyperglycemia, pulmonary edema, and atrial fibrillation with RVR presenting with complaints of shortness of breath. Patient reports baseline intermittent shortness of breath episodes, and he was recently hospitalized 10/18/25-10/23/25 and 10/28/25-10/30/25 for CHF exacerbation - required bipap during admission. This morning, he began an episode of shortness of breath and wheezing that has become progressively worse. EMS was called and he was found to be in the 80s SpO2 on room air. He normally does not require oxygen at home. He was transported to [facility] ED for further assessment and has had home O2 walk tests in the past. In the ED, BP 103/62, HR 73, RR 19, T98.6, O2 95% nasal cannula. WBC 11.51, Hgb 13, PLT 226. Glucose 145. BUN and creatinine WNL. GFR 60.8. BNP 4254. Albumin 3.2. CXR; CHF with superimposed pneumonia not excluded, see full results. Will admit to Hospitalist Service for further evaluation and treatment. 11/19/25: Patient sitting up resting comfortably in bed at time of assessment. He reports his breathing is much improved and no longer requires supplemental oxygen. He is on room air, 96%. Patient will discharge to home and follow-up outpatient with PCP. Physical Exam Narrative: Neurologic: Awake and alert. Oriented x3. No facial asymmetry, unilateral weakness or speech deficits. Head NC/AT Eyes PERRLA. EOMI. Sclera anicteric. ENT Normal external ears. Mildly heard of hearing Normal external nose. No epistaxis. MMM. Respiratory improved breath sounds and no longer requiring O2 Able to speak in full sentences. No accessory muscle use. Heart / CV Regular. No murmur. Extremities BLE edema, trace Abdomen / GI Soft. NT. ND. +BS Discharge Data Studies Completed and Pending Completed Studies During Hospitalization Category Date Time Status XR chest 1V portable [id number] Stat Exams 11/18/25 05:58 Completed Pending at discharge Category Date Time Status Basic Metabolic Panel AM LABS Lab 11/21/25 04:00 Ordered Basic Metabolic Panel AM LABS Lab 11/20/25 04:00 Ordered Blood Culture Stat Lab 11/18/25 06:33 Results Complete Blood Count w/Auto AM LABS Lab 11/21/25 04:00 Ordered Complete Blood Count w/Auto AM LABS Lab 11/20/25 04:00 Ordered Respiratory Panel 2 Routine Lab 11/18/25 13:58 Uncollected Urinalysis Routine Lab 11/18/25 16:58 Uncollected Radiology Impressions Chest X-Ray 11/18/25 05:58 IMPRESSION: Mild CHF with superimposed pneumonia not excluded. Laboratory Results WBC 9.54 10^3/uL (3.29-11.43) 11/19/25 05:15 RBC 4.55 10^6/uL (3.85-5.65) 11/19/25 05:15 Hgb 13.10 g/dL (11.27-16.99) 11/19/25 05:15 Hct 41.6 % (37-53) 11/19/25 05:15 MCV 91.4 fl (82-101) 11/19/25 05:15 MCH 28.8 pg (27-33) 11/19/25 05:15 MCHC 31.5 g/dL (30-55) 11/19/25 05:15 RDW 15.4 % (12.1-15.1) H 11/19/25 05:15 Plt Count 266 10^3/cmm (157-399) 11/19/25 05:15 MPV 10.9 fL (7.4-10.4) H 11/19/25 05:15 Neut % (Auto) 85.6 % 11/19/25 05:15 Lymph % (Auto) 11.0 % 11/19/25 05:15 [place] % (Auto) 2.8 % 11/19/25 05:15 Eos % (Auto) 0.0 % 11/19/25 05:15 Baso % (Auto) 0.1 % 11/19/25 05:15 Neut # (Auto) 8.16 10^3/uL (1.8-7.7) H 11/19/25 05:15 Lymph # (Auto) 1.1 10^3/uL (0.8-4.8) 11/19/25 05:15 [facility] # (Auto) 0.3 10^3/uL (0.2-0.9) 11/19/25 05:15 Eos # (Auto) 0.0 10^3/uL (0.0-0.8) 11/19/25 05:15 Baso # (Auto) 0.0 10^3/uL (0.0-0.1) 11/19/25 05:15 Nucleated RBC % (auto) 0 % 11/19/25 05:15 Nucleated RBCs # 0.0 /100WBC 11/19/25 05:15 D-Dimer 0.45 ug/mLFEU (0-0.59) 11/19/25 05:15 Sodium 137 mmol/L (136-145) 11/19/25 05:15 Potassium 4.3 mmol/L (3.5-5.1) 11/19/25 05:15 Chloride 99 mmol/L (98-107) 11/19/25 05:15 Carbon Dioxide 23 mmol/L (22-29) 11/19/25 05:15 Anion Gap 19.3 (5-19) H 11/19/25 05:15 BUN 22 mg/dL (8-23) 11/19/25 05:15 Creatinine 1.3 mg/dL (0.7-1.2) H 11/19/25 05:15 GFR Calculation 55.4 mL/min (90-130) L 11/19/25 05:15 Glucose 235 mg/dL (65-115) H 11/19/25 05:15 Calculated Osmolality 295 mOsm/kg (285-295) 11/19/25 05:15 Calcium 8.8 mg/dL (8.5-10.5) 11/19/25 05:15 Phosphorus 3.8 mg/dL (2.5-4.5) 11/19/25 05:15 Magnesium 2.8 mg/dL (1.7-2.3) H 11/19/25 05:15 Total Bilirubin 0.7 mg/dL (0.15-1.2) 11/18/25 06:17 AST 28 U/L (0-40) 11/18/25 06:17 ALT 29 U/L (0-41) 11/18/25 06:17 Alkaline Phosphatase 151 U/L (40-130) H 11/18/25 06:17 Troponin T 5th Gen ng/L 18 ng/L (0-15) H 11/18/25 06:17 NT-Pro-B Natriuret Pep 4549 pg/mL (0-125) H 11/19/25 05:15 Total Protein 6.1 g/dL (6.6-8.7) L 11/18/25 06:17 Albumin 3.2 g/dL (3.5-5.2) L 11/18/25 06:17 Globulin 2.9 g/dL (1.3-4.6) 11/18/25 06:17 Influenza A (PCR) Negative (Negative) 11/18/25 06:29 Influenza Type B (PCR) Negative (Negative) 11/18/25 06:29 RSV (PCR) Negative (Negative) 11/18/25 06:29 SARS-CoV-2 (PCR) Negative (Negative) 11/18/25 06:29 Vitals Last Vital Signs Temp 97.6 F 11/19/25 08:00 Pulse 76 11/19/25 08:09 Resp 18 11/19/25 08:09 BP 116/61 11/19/25 08:00 Pulse Ox 90 11/19/25 11:21 O2 Del Method Room Air 11/19/25 08:21 O2 Flow Rate 2 11/19/25 11:21 FiO2 21 11/18/25 07:33 Discharge Plan Discharge Patient Disposition: Home Condition: Stable Prescriptions: Continued atorvastatin 20 mg tablet 20 mg PO DAILY Qty: 90 1RF Rx Instructions: once daily at bedtime amiodarone [Pacerone] 200 mg tablet 200 mg PO QDAY tamsulosin 0.4 mg capsule 0.4 mg PO DAILY Qty: 90 0RF sacubitril-valsartan [Entresto] 24-26 mg Tablet 1 tab PO BID Qty: 60 3RF furosemide [Lasix] 40 mg tablet 40 mg PO DAILY Qty: 30 0RF metoprolol tartrate 25 mg Tablet 25 mg PO BID@0900,2100 Qty: 60 1RF potassium chloride 20 mEq tablet extended release 20 meq PO DAILY aspirin 81 mg Tablet,Chewable 81 mg PO DAILY 90 Days Qty: 90 0RF ipratropium-albuterol 0.5 mg-3 mg(2.5 mg base)/3 mL solution for nebulization 3 ml inhalation Q6H PRN (Reason: shortness of breath or wheezing) Qty: 180 0RF dapagliflozin propanediol [Farxiga] 10 mg tablet 10 mg PO DAILY Associate Embalmer/Funeral Director OK for DC: Family Medicine Discharge Order = DC NOW: Discharge Order (Routine); Ordered 11/19/25 Ordered By: Rain Martinez Referrals: Allyson Dempsey DO [Primary Care Provider, [facility]] - 2 weeks Discharge Diet: Advance as tolerated Discharge Activity: Resume usual activity Patient Instructions: Opioid Safety, Patient Portal & Karli Instructions Discharge Attestations Time Spent in Discharge Care*: greater than 30 min Quality Metrics Clinical Quality Measures [ No reported AMI, CVA or VTE this stay] Coding Level of Care Code 85657 Diagnoses HFrEF (heart failure with reduced ejection fraction) I50.20 PAF (paroxysmal atrial fibrillation) I48.0 COPD (chronic obstructive pulmonary disease) J44.9 Urinary retention R33.9 Diabetes type 2 E11.9 Dyslipidemia E78.5 Nicotine dependence, cigarettes, with unspecified nicotine-induced disorders F17.219
--- NOTE | 2025-11-19 09:54 | PC.CHAP ---
Pastoral Care Encounter/Spiritual Assessment Type of Contact [] Declined laboratory mechanic helper visit [] Patient/Family/Request visit [] Outpatient visit [] Follow-up visit [] Physician referral [] Code/Alert [x] Routine visit [] Staff referral [] Actively dying [] Patient sleeping [] Family support [] [] Out of room [] Palliative care [] [] Receiving care in room [] Pre-surgical visit [] Trauma [] Long length of stay [] ICU visit [] Other: Relational/Emotional Strength [x] Patient feels connected with others/family/visitors/staff [] Distress [] Loneliness/isolation [] Abandonment Spirituality of Patient [x] Person of [place] [] Attends Mu-Ism of their [place] [x] Believes in Prayer [] Reads Bible or Catholic materials [] There are Spiritual issues to be addressed Human Performance Consultant Interventions [x] Prayer [x] Active listening [] Non-anxious presence [x] Spiritual/emotional support [] Crisis/trauma care [] Spiritual counseling [] Bereavement support [] Provided bereavement packet [] Provided Bible/devotional materials [] Provided toy/stuffed animal, coloring book to patient or family member [] Provided Communion [] Anointing/[place] [] Salvation [x] Completed spiritual assessment [] Other: Impact on Illness or Injury [] Angry [] Fearful [] Anxious [] Often cries [] Exhaustion [] Unable to work [] Unable to attend jehovah's witness [] Unable to walk/stand [] Unable to read [] Unable to drive [] Unable to eat/drink [] Unable to sleep [] Unable to be with family [] Patient intubated [] Other: Summary Time spent with patient 5 min
== END 2025-11-19 13:59 | disposition home or self-care (01) ==
LOC: ER 07:45 → ER IP 07:57 → MEDSURG 13:53
PROVIDERS: Admitting Provider Internal Medicine; Emergency Provider Emergency Medicine; PCP Family Medicine; Visit Provider Clinical Nurse Specialist Acute Care
DX: I50.20 Unspecified systolic (congestive) heart failure (principal); I11.0 Hypertensive heart disease with heart failure; I48.0 Paroxysmal atrial fibrillation; J44.9 Chronic obstructive pulmonary disease, unspecified; R33.9 Retention of urine, unspecified; E11.9 Type 2 diabetes mellitus without complications; E78.5 Hyperlipidemia, unspecified; F17.219 Nicotine dependence, cigarettes, with unspecified nicotine-induced disorders; Z79.82 Long term (current) use of aspirin; G47.33 Obstructive sleep apnea (adult) (pediatric); Z99.89 Dependence on other enabling machines and devices
CPT/HCPCS: 36415; 71045; 80048; 80053; 83735; 83880; 84100; 84484; 85025; 85378; 87040; 87637; 93005; 94640; 94760; 96365; 96366; 96375; 96376; 99285; G0378; J0456; J0696; J1938; J2919; J7050; J7613; J9999